=== PATIENT | male | born 1945 | race Caucasian/White ===

== ENCOUNTER 2017-12-16 15:00 | Inpatient (IN) ==
[2017-12-16 19:10] LABS: Basophils # (Auto) 0 K/mcL (0.0-0.3); Basophils % (Auto) 0.3 % (0.0-2.0); Eosinophils # (Auto) 0.2 K/mcL (0.0-0.7); Granulocytes % (Auto) 65.6 % (38.0-78.0); Lymphocytes # (Auto) 1.4 K/mcL (1.5-4.8); Lymphocytes % (Auto) 21.1 % (15.5-49.0); Mean Cell Volume 95.9 fL (80.0-100.0); Mean Corpuscular HGB Conc 33.5 g/dL (31.0-36.0); Mean Corpuscular Hemoglobin 32.1 pg (26.0-34.0); Monocytes # (Auto) 0.7 K/mcL (0.1-0.9); Platelet Count 193 K/mcL (140-440); RBC 4.88 M/mcL (4.50-5.90); Red Cell Distribution Width 14.4 % (11.5-14.5)
[2017-12-16 19:28] LABS: Appearance,Urine HAZY; Bacteria,Urine 0 /hpf (0); Bilirubin,Urine NEG (NEG); Color,Urine AMBER; Glucose,Urine (UA) NEGATIVE (NEG); Leukocyte Esterase,Urine NEG /uL (NEG); Mucus,Urine FEW /hpf (0); Protein,Urine 30 mg/dL (NEG); Specific Gravity,Urine 1.024 (1.000-1.035); Urine Blood NEG mg/dL (<0.03); Urine Hyaline Cast 1 /lpf (0-2); Urine RBC < 1 /hpf (0-1); Urine Squamous Epithelial Cell < 1 /hpf (0-4); Urine WBC 0 /hpf (0-4); Urobilinogen,Urine NEG (NEG)
[2017-12-16 20:27] LABS: Blood Urea Nitrogen 17 mg/dl (8-23)
[2017-12-22] MEDS ORDERED: oxyCODONE 10 MG TAB.ER.12H PO SCH (06:00)
[2017-12-22] MEDS ORDERED: 0.9 % SODIUM CHLORIDE 9 ML, KETOROLAC 30 MG, ROPIVACAINE HCL/PF 49.5 ML, EPINEPHrine 0.... IJ SCH (06:00)
[2017-12-22] MEDS ORDERED: PREGABALIN 75 MG CAPSULE PO SCH (06:00)
[2017-12-22] MEDS ORDERED: CELECOXIB 200 MG CAPSULE PO SCH (06:00)
[2017-12-22] MEDS ORDERED: ceFAZolin 1 GM VIAL IV SCH (06:00)
[2017-12-22] MEDS ORDERED: GLYCOPYRROLATE 0.2 MG/ML VIAL IV ONE (15:20)
[2017-12-22] MEDS ORDERED: PROPOFOL 200 MG/20 ML VIAL IV ONE (15:20)
[2017-12-22] MEDS ORDERED: ETOMIDATE 20 MG/10 ML VIAL IV ONE (15:20)
[2017-12-22] MEDS ORDERED: TRANEXAMIC ACID 1,000 MG/10 ML VIAL IV ONE ×2 (15:20→16:59)
[2017-12-22] MEDS ORDERED: ROPIVACAINE HCL/PF 30 ML VIAL IJ ONE (15:20)
[2017-12-22] MEDS ORDERED: KETAMINE 100 MG/ML ML IV ONE (15:20)
[2017-12-22] MEDS ORDERED: ONDANSETRON 4 MG/2 ML VIAL IV ONE (15:20)
[2017-12-22] MEDS ORDERED: MIDAZOLAM 5 MG/5 ML VIAL IV ONE (15:20)
[2017-12-22] MEDS ORDERED: LIDOCAINE HCL/PF 100 MG/5 ML SYRINGE IV ONE (15:20)
[2017-12-22] MEDS ORDERED: GENTAMICIN SULFATE 800 MG/20 ML VIAL IR ONE (16:04)
[2017-12-22] MEDS ORDERED: MEPERIDINE 25 MG/ML SYRINGE IV PRN (16:41)
[2017-12-22] MEDS ORDERED: LORazepam 2 MG/ML VIAL IV PRN (16:41)
[2017-12-22] MEDS ORDERED: ONDANSETRON 4 MG/2 ML VIAL IV PRN ×2 (16:41→16:59)
[2017-12-22] MEDS ORDERED: ACETAMINOPHEN 1,000 MG/100 ML BOTTLE IV ONE (16:41)
[2017-12-22] MEDS ORDERED: METHOCARBAMOL 1,000 MG/10 ML VIAL IV PRN (16:41)
[2017-12-22] MEDS ORDERED: IPRATROPIUM/ALBUTEROL 3 ML AMPUL.NEB NEB PRN (16:41)
[2017-12-22] MEDS ORDERED: fentaNYL 100 MCG/2 ML VIAL IV PRN (16:41)
[2017-12-22] MEDS ORDERED: LACTATED RINGERS 1,000 ML IV SCH (16:45)
[2017-12-22] MEDS ORDERED: ALPRAZolam 0.5 MG TABLET PO SCH (16:45)
--- NOTE | 2017-12-22 16:58 | Brief Operative Note ---
Date of procedure: 12/22/17 Pre-op diagnosis: right knee oa Post-op diagnosis: same Procedure: right total knee arthroplasty Grafts/Implants: Yes Anesthesia: spinal Complications: none Surgeon: Zhen Kaufmna [place] Scientist: Rylee Thomas Estimated blood loss (cc): 150 Tourniquet Time (Minutes): 68 Specimens Removed/Pathology: none sent Condition: stable Disposition: PACU
[2017-12-22] MEDS ORDERED: oxyCODONE/APAP 5/325MG TABLET PO PRN (16:59)
[2017-12-22] MEDS ORDERED: BISACODYL 10 MG SUPP.RECT PR PRN (16:59)
[2017-12-22] MEDS ORDERED: FLEETS ADULT ENEMA PR PRN (16:59)
[2017-12-22] MEDS ORDERED: MAGNESIUM HYDROXIDE 30 ML ORAL.SUSP PO PRN (16:59)
[2017-12-22] MEDS ORDERED: METHOCARBAMOL 750 MG TABLET PO PRN (16:59)
[2017-12-22] MEDS ORDERED: BENZOCAINE/MENTHOL 1 LOZENGE PO PRN (16:59)
[2017-12-22] MEDS ORDERED: ONDANSETRON ODT 4 MG TABLET SL PRN (16:59)
[2017-12-22] MEDS ORDERED: LORazepam 1 MG TABLET PO SCH (17:00)
--- NOTE | 2017-12-22 18:07 | XRay Report ---
CLINICAL INFORMATION: Postsurgical follow-up TECHNIQUE: AP and crosstable lateral right knee COMPARISON: None. FINDINGS: Status post right total knee arthroplasty. Femoral and proximal tibial components are in anatomic positions. There is postsurgical soft tissue and intra-articular gas IMPRESSION: Right total knee arthroplasty. Interpreted and Authenticated by: Zhen Maki 12/22/17
[2017-12-22] MEDS ORDERED: ACETAMINOPHEN 1,000 MG/100 ML BOTTLE IV PRN (18:57)
[2017-12-22] MEDS: KETOROLAC 15 MG/ML VIAL IV SCH (22:25)
[2017-12-22] MEDS: 0.9 % SODIUM CHLORIDE 1,000 ML IV SCH (22:25)
[2017-12-22] MEDS: 0.9 % SODIUM CHLORIDE 10 ML SYRINGE IV SCH (22:27)
[2017-12-22] MEDS: ceFAZolin 1 GM VIAL IV SCH (22:27)
[2017-12-22] MEDS: SENNOSIDES 1 TABLET PO SCH (23:17)
[2017-12-22] MEDS: RIVAROXABAN 20 MG TABLET PO SCH (23:17)
[2017-12-22] MEDS: DOCUSATE SODIUM 100 MG CAPSULE PO SCH (23:17)
[2017-12-22] MEDS: METOPROLOL TARTRATE 50 MG TABLET PO SCH (23:17)
[2017-12-23] MEDS: KETOROLAC 15 MG/ML VIAL IV SCH ×4 (01:45→17:04)
[2017-12-23] MEDS: 0.9 % SODIUM CHLORIDE 1,000 ML IV SCH ×3 (01:46→17:04)
[2017-12-23] MEDS: traMADol 50 MG TABLET PO PRN ×3 (06:17→17:03)
[2017-12-23] MEDS: 0.9 % SODIUM CHLORIDE 10 ML SYRINGE IV SCH ×3 (06:17→22:00)
--- NOTE | 2017-12-23 07:34 | Orthopedic Progress Note ---
Subjective Patient information: Note initiated : 12/23/17 at 7:31 am Service Date, if different from initiated Date: [] Patient: Aaron Omalley 72 y/o M admitted on 12/22/17 for Right Total Knee Arthroplasty. Chief Complaint: [POD #1 s/p right TKA Doing very well. Nurses state foot was "blue" last night and they loosened the LANCE wrap. He denies CP, SOB, numbness, tingling, calf pain or foot pain. Ambulating well.] Objective Vital signs: Vital Signs Temp Pulse Resp BP BP Pulse Ox 12/23/17 03:22 98.4 F 70 14 140/99 96 12/23/17 00:00 144/101 12/22/17 23:41 97.4 F 72 14 172/99 95 12/22/17 21:40 97.6 F 72 14 137/96 97 12/22/17 20:40 126/92 12/22/17 20:10 79 132/91 94 12/22/17 19:40 77 132/92 93 12/22/17 19:25 76 132/97 93 12/22/17 19:10 82 140/95 93 12/22/17 18:55 79 148/95 93 12/22/17 18:41 97.0 F 91 H 18 172/101 95 12/22/17 18:35 98 F 101 H 14 146/92 96 12/22/17 18:28 97.5 F 104 H 15 148/96 97 12/22/17 18:19 97.5 F 96 H 16 178/96 95 12/22/17 18:04 98.1 F 99 H 14 158/89 95 12/22/17 17:54 98 F 89 16 168/89 95 12/22/17 17:44 97.6 F 102 H 16 137/89 98 12/22/17 17:34 97.5 F 89 17 143/98 98 12/22/17 17:29 97 F 107 H 17 156/98 100 12/22/17 17:24 96.8 F L 95 H 15 167/97 99 12/22/17 17:19 96.8 F L 110 H 18 147/94 96 12/22/17 12:43 98.4 F 88 16 176/94 98 Intake and Output 12/22/17 12/23/17 12/23/17 21:59 05:59 13:59 Intake Total 3000 / 3000 1100 / 1100 1000 / 1000 Output Total 765 / 765 250 / 250 Balance 2235 / 2235 850 / 850 1000 / 1000 Intake: IV 100 / 100 1000 / 1000 Sodium Chloride 0.9% 1,000 ml @ 1000 / 1000 125 mls/hr IV .Q8H [facility] Rx#: [id number] Oral 1100 / 1100 IV - Manual Only 2900 / 2900 Output: Urine Catheter Amount 700 / 700 Void Amount 250 / 250 Estimated Blood Loss 65 / 65 Other: Meal Nourishment/Supplement Percent of Meal Consumed 100% Feeding Ability Independent Urine Appearance Clear Urine Color Pale Urine Odor Normal Weight 187 lb Intake & Output: Intake & Output 12/22/17 12/23/17 12/23/17 21:59 05:59 13:59 Intake Total 3000 / 3000 1100 / 1100 1000 / 1000 Output Total 765 / 765 250 / 250 Balance 2235 / 2235 850 / 850 1000 / 1000 Weight 187 lb Intake: IV 100 / 100 1000 / 1000 Sodium Chloride 0.9% 1,000 ml @ 1000 / 1000 125 mls/hr IV .Q8H [facility] Rx#: [id number] Oral 1100 / 1100 IV - Manual Only 2900 / 2900 Output: Urine Catheter Amount 700 / 700 Void Amount 250 / 250 Estimated Blood Loss 65 / 65 Other: Meal Nourishment/Supplement Percent of Meal Consumed 100% Feeding Ability Independent Urine Appearance Clear Urine Color Pale Urine Odor Normal Incision: Yes healing, No draining, No red, No swollen, No inflamed, Yes clean and dry Incision clean and dry: Yes Dressing: Yes clean, Yes dry, Yes intact Weight bearing status: as tolerated Range of motion: full foot and ankle Neurological exam IM: Yes alert, Yes oriented X3, Yes motor sensory intact, Yes neurovascular intact Extremities exam IM: No calf tenderness, Yes normal capillary refill, Yes normal inspection, Yes neurovascular intact Additional Comments: right foot slightly bluer in hue compared to left. Good pulses. Cap refill < 3 seconds - Periperhal Pulses Peripheral pulses: 2+: dorsalis pedis (L), dorsalis pedis (R), posterior tibialis (L), posterior tibialis (R) - Labs CBC & BMP: 12/23/17 06:00 12/16/17 16:09 Labs: Orthopedic Labs 12/16/17 16:09 PT 13.3 INR 1.0 12/23/17 12/16/17 06:00 16:10 Hgb 12.1 L 15.7 Hct 36.6 L 46.8 Assessment and Plan (1) Osteoarthritis, knee POD #1 s/p right TKA: -rehab Thursday -pain control -home meds resume including Ativan -ASA for dvt prophylaxis -WBAT -monitor right foot. Encourage ambulation and CPM. No current concern for blood clot. LANCE not overly tight Status: Acute
--- NOTE | 2017-12-23 07:51 | Operative Note ---
DATE OF OPERATION: 12/22/2017 PREOPERATIVE DIAGNOSIS: Degenerative joint disease, right knee. POSTOPERATIVE DIAGNOSIS: Degenerative joint disease, right knee. PROCEDURE: Right total knee arthroplasty. SURGEON: Dougie Kaufman M.D. POLE CLASSIFIER SURGEON: Rylee Thomas PA-C. ANESTHESIA: Spinal with LMA assist. ESTIMATED BLOOD LOSS: 150 mL. COMPLICATIONS: None noted. SPECIMENS REMOVED: None. DRAINS: None. TOURNIQUET TIME: 68 minutes at 300 mmHg. IMPLANTS: DePuy CMW2 bone cement 20 grams x5; DePuy Attune femoral posterior stabilized size 10 right, cemented; DePuy Attune tibial insert fixed bearing posterior stabilized size 10, 5 mm AOX; DePuy Attune tibial base fixed bearing size 9, cemented; DePuy Attune patella medialized dome 41 mm, cemented AOX. INDICATIONS: The patient has had a long-standing history of worsening pain in the knee that has failed conservative treatment. Radiographs have confirmed advanced degenerative joint disease. After a long discussion about treatment options, the patient elected to proceed with a knee arthroplasty. The risks and benefits were discussed with the patient in detail including, but not limited to, the risks of anesthesia, problems with the heart or lungs related to anesthesia, infection, compromise or injury to the nerves and blood vessels, deep venous thrombosis, pulmonary embolism, pneumonia, continued pain after surgery, worsening pain or symptoms after surgery, swelling, loss of motion, instability, leg length discrepancy, and need for repeat surgery. DESCRIPTION OF PROCEDURE: The patient was seen in the pre-anesthesia waiting room where all questions were answered and the correct side and site were identified and marked. The patient was transferred to the operating room and administered the anesthetic and given pre-operative antibiotics. A time-out was then called. The extremity was prepped and draped, exsanguinated, and the tourniquet was inflated to 300 mmHg. A midline skin incision was then made with a standard medial parapatellar arthrotomy. Debridement of the menisci, ACL, and PCL was performed followed by balancing releases in the medial lateral plane. We then established intramedullary access to both the femur and tibia in a standard fashion. The femoral guide danita was initially placed with the distal femoral guide, pinned into place, and the distal femoral cut was performed and checked with a flat plate. We then turned our attention to the tibia. The intramedullary guide was placed with the proximal tibial cutting block. The block was appropriately positioned off the affected side, varus and valgus was checked with the extra-medullary guide, and the block was pinned into place. The proximal tibial cut was performed and the tibia was prepared for the tibial implant with appropriate rotation. The tibia, femur, and posterior compartment were debrided of osteophytes, loose bodies, and meniscal fragments We then used the gap balancing technique to balance extension with the first two cuts and good balancing was obtained with a 10 millimeter gap block. We turned our attention back to the femur and used the referencing block and implant to size appropriately. Using the gap balancing technique for the flexion space we set our rotation of the femur off the tibial cut. Anesthesia gave the patient 1 gram of Tranexamic Acid via an intravenous route. We placed the 4 in 1 cutting block and made anterior, posterior, and chamfer cuts. Box plasty cuts were then made in a standard fashion for the posterior stabilized prosthesis. We then completed osteophyte release and posterior capsule release from the posterior compartment. Trials were placed and we chose the polyethylene insert thickness that provided the best stability in all planes. With the trials in place, we did a measured resection for a resurfacing patella. We sized the patella and placed the patella trial and performed a lateral facetectomy with the saw and rongeur. Good tracking was obtained. We removed all trials, irrigated and dried all cut surfaces. We cemented the components into place including tibia, femur and patella. We placed a trial liner and held the knee in full extension with the patella compressed while the cement cured. We then removed all excess cement and placed the final polyethylene tibiofemoral component. Irrigation with 3 liters of antibiotic saline was then performed using jet-lavage. We let the tourniquet down and coagulated bleeding vessels. We injected a 100 cubic centimeter volume including Ropivacaine 49.25 cubic centimeters at 5 milligrams per cubic centimeter, Ketorolac 30 milligrams, and Epinephrine 0.5 milligrams into 100 cubic centimeters volume of normal saline. We closed the retinaculum with #2 Stratafix and 0 Vicryl. We closed the subcutaneous tissue and skin in layers out to Dermabond on the skin. A sterile pressure dressing was applied. All needle and sponge counts were correct. The patient was transferred to the recovery room in stable condition. Saba Job ID: [id number] Doc ID: [id number] Dougie Kaufman MD
[2017-12-23] MEDS: ceFAZolin 1 GM VIAL IV SCH (07:55)
[2017-12-23] MEDS: METOPROLOL TARTRATE 50 MG TABLET PO SCH ×2 (07:56→22:06)
[2017-12-23] MEDS: DOCUSATE SODIUM 100 MG CAPSULE PO SCH ×2 (07:56→22:06)
[2017-12-23] MEDS: RIVAROXABAN 20 MG TABLET PO SCH (17:03)
[2017-12-23] MEDS: SENNOSIDES 1 TABLET PO SCH (22:06)
[2017-12-24] MEDS: 0.9 % SODIUM CHLORIDE 1,000 ML IV SCH ×3 (01:00→17:16)
[2017-12-24] MEDS: KETOROLAC 15 MG/ML VIAL IV SCH ×3 (05:03→12:06)
[2017-12-24] MEDS: 0.9 % SODIUM CHLORIDE 10 ML SYRINGE IV SCH ×3 (05:04→20:50)
--- NOTE | 2017-12-24 07:13 | Orthopedic Progress Note ---
Subjective Patient information: Note initiated : 12/24/17 at 7:12 am Service Date, if different from initiated Date: [] Patient: Aaron Omalley 72 y/o M admitted on 12/22/17 for Right Total Knee Arthroplasty. Chief Complaint: [] Interval history: doing well. ambulating Objective Vital signs: Vital Signs Temp Pulse Resp BP Pulse Ox 12/24/17 04:50 97.4 F 100 H 14 161/97 97 12/23/17 19:14 98.4 F 89 13 130/77 96 12/23/17 16:55 98.6 F 20 136/90 95 12/23/17 11:53 98 F 20 139/90 98 12/23/17 07:48 98.1 F 20 133/92 97 Intake and Output 12/23/17 12/24/17 12/24/17 21:59 05:59 13:59 Intake Total 400 / 400 600 / 600 Output Total 200 / 200 Balance 400 / 400 400 / 400 Intake: Oral 400 / 400 600 / 600 Output: Void Amount 200 / 200 Other: Urine Color Dark Yellow Urine Odor Normal # Voids 1 Weight 188 lb Intake & Output: Intake & Output 12/23/17 12/24/17 12/24/17 21:59 05:59 13:59 Intake Total 400 / 400 600 / 600 Output Total 200 / 200 Balance 400 / 400 400 / 400 Weight 188 lb Intake: Oral 400 / 400 600 / 600 Output: Void Amount 200 / 200 Other: Urine Color Dark Yellow Urine Odor Normal # Voids 1 Incision: Yes healing Incision clean and dry: Yes Dressing: Yes clean, Yes dry, Yes intact Weight bearing status: full Neurological exam IM: Yes alert, Yes normal gait, Yes oriented X3, Yes neurovascular intact Extremities exam IM: No calf tenderness, Yes Foot pink and warm, Yes neurovascular intact - Labs CBC & BMP: 12/23/17 06:00 12/16/17 16:09 Labs: Orthopedic Labs 12/16/17 16:09 PT 13.3 INR 1.0 12/24/17 12/23/17 12/16/17 05:11 06:00 16:10 Hgb Pending 12.1 L 15.7 Hct Pending 36.6 L 46.8 Assessment and Plan (1) Osteoarthritis, knee pod 2 s/p tka wbat pain control dvt prophylaxis dc planning Status: Acute
--- NOTE | 2017-12-24 07:14 | Discharge Summary ---
Ortho Discharge - TKA - Patient Instructions Diet: Regular Diet Activity: activity as tolerated, ambulate with assistive device, weight bearing as tolerated Total Knee Protocol: For Total Knee: Start ROM CLEMENCIA with stationary bike or rocking chair. Work on gaining full extension of knee. Posterior dislocation precautions provided. Hip abductor strengthening and gait training instructions provided. Apply Cryocuff as instructed. Dressing Care: May shower in 2 days Patient Education: Total Knee Replacement (DC) Additional Instructions: Discharge Instructions: Do the exercises at home that physical therapy gave you throughout the day. Weight bearing as tolerated. Wear comfortable clothing for physical therapy. You have Dermabond (a dressing with a mesh-like appearance), DO NOT remove mesh. Cover site daily with gauze dressing. You may start showering on post op day #2. The Dermabond dressing can get wet, do not scrub dressing. Pat dry, then place new dressing (above). To avoid constipation while taking any narcotic pain medication, take an over the counter stool softener/laxative. Use your Cryocuff or ice packs as directed, on for 20 minutes at a time throughout the day. This and elevation will help with pain and swelling. Call your physician for fevers above 100.5 or pain not controlled by medication. Your prescriptions are with your discharge information. Some medications were electronically transmitted to your pharmacy of choice. Take Aspirin twice daily, for 30 days, as prescribed to prevent blood clots ( see medication list). - Problem Maintenance (1) Osteoarthritis, knee Status: Acute - Follow Up Plan Follow Up Appointments: Zhen Kaufman MD [Physician] - 01/04/18 10:20 am Disposition: Xfer SNF Prognosis: Good Rehab Potential: Good I certify that the patient requires SNF services: Yes Overall status at discharge: patient is progressing back to baseline
[2017-12-24] MEDS: DOCUSATE SODIUM 100 MG CAPSULE PO SCH ×2 (07:58→20:49)
[2017-12-24] MEDS: traMADol 50 MG TABLET PO PRN (07:58)
[2017-12-24] MEDS: POLYETHYLENE GLYCOL 3350 17 GM PACKET PO PRN (07:59)
[2017-12-24] MEDS: METOPROLOL TARTRATE 50 MG TABLET PO SCH ×2 (07:59→20:49)
[2017-12-24] MEDS: LORazepam 1 MG TABLET PO PRN (08:09)
[2017-12-24] MEDS: RIVAROXABAN 20 MG TABLET PO SCH (17:14)
[2017-12-24] MEDS ORDERED: ACETAMINOPHEN 325 MG TABLET PO PRN (20:01)
[2017-12-24] MEDS: SENNOSIDES 1 TABLET PO SCH (20:49)
[2017-12-25] MEDS: POLYETHYLENE GLYCOL 3350 17 GM PACKET PO PRN (05:09)
--- NOTE | 2017-12-25 07:38 | Orthopedic Progress Note ---
Subjective Patient information: Note initiated : 12/25/17 at 7:35 am Service Date, if different from initiated Date: [] Patient: Aaron Omalley 72 y/o M admitted on 12/22/17 for Right Total Knee Arthroplasty. Chief Complaint: [POD #3 s/p right TKA Developed severe blisters surrounding dermabond and right lower extremity. Slight increase in temperature yesterday. No nausea, vomiting, numbness, tingling, CP, SOB. Denies significant pain. No other concerns.] Objective Vital signs: Vital Signs Temp Pulse Pulse Resp BP Pulse Ox 12/25/17 04:00 99.3 F H 90 20 140/85 96 12/25/17 00:00 100.1 F H 98 H 16 135/86 97 12/24/17 20:00 100.1 F H 98 H 18 148/88 98 12/24/17 16:05 100.8 F H 90 18 152/89 12/24/17 11:31 98.1 F 82 14 144/92 98 12/24/17 07:57 98.1 F 87 14 154/94 98 Intake and Output 12/24/17 12/25/17 12/25/17 21:59 05:59 13:59 Intake Total 1200 / 1200 Balance 1200 / 1200 Intake: Oral 1200 / 1200 Other: # Voids 1 2 # Bowel Movements 0 Weight 209 lb 6.4 oz Intake & Output: Intake & Output 12/24/17 12/25/17 12/25/17 21:59 05:59 13:59 Intake Total 1200 / 1200 Balance 1200 / 1200 Weight 209 lb 6.4 oz Intake: Oral 1200 / 1200 Other: # Voids 1 2 # Bowel Movements 0 Incision: Yes draining, Yes swollen, Yes inflamed Incision clean and dry: No Dressing: No clean Weight bearing status: as tolerated Range of motion: full foot and ankle Neurological exam IM: Yes alert, Yes oriented X3, Yes motor sensory intact, Yes neurovascular intact Additional Comments: Multiple bullae surrounding right knee incision and abrasions. Bullous distally posterior right ankle. Incision approximated without dehiscence or drainage. 2+ edema of right foot, slightly blue in hue. DP/PT pulses 2+, capillary refill < 3 seconds Extremities exam IM: No calf tenderness, Yes normal capillary refill, Yes neurovascular intact - Labs CBC & BMP: 11/09/18 05:51 12/16/17 16:09 Labs: Orthopedic Labs 12/16/17 16:09 PT 13.3 INR 1.0 12/25/17 12/24/17 12/23/17 05:51 05:11 06:00 Hgb 9.9 L 10.4 L 12.1 L Hct 29.2 L 31.1 L 36.6 L 12/16/17 16:10 Hgb 15.7 Hct 46.8 Assessment and Plan (1) Osteoarthritis, knee POD #3 s/p right TKA: -continue hospital stay to follow wound complication -pain control -home meds resume including Ativan -WBAT -no PT until knee reinforced. Spoke to anesthesia, will take patient to PACU for conscious sedation this afternoon to staple wound. -wound care consult -IV abx over the weekend -keep dressing on at all times Status: Acute
[2017-12-25] MEDS: LORazepam 1 MG TABLET PO PRN (07:47)
[2017-12-25] MEDS: METOPROLOL TARTRATE 50 MG TABLET PO SCH ×2 (08:38→20:58)
[2017-12-25] MEDS: DOCUSATE SODIUM 100 MG CAPSULE PO SCH ×2 (08:38→20:58)
[2017-12-25] MEDS: CLINDAMYCIN 600 MG in DEXTROSE 5% IN WATER 50 ML IV SCH ×3 (09:59→21:15)
--- NOTE | 2017-12-25 10:10 | Ultrasound Report ---
CLINICAL INFORMATION: Right leg pain and swelling TECHNIQUE: Jovel scale and color flow Doppler spectral imaging COMPARISON: None. FINDINGS: Negative examination for deep venous thrombosis. Normal right common femoral vein, superficial femoral vein, popliteal vein. Negative calf veins. Greater and lesser saphenous veins are negative. IMPRESSION: 1. Negative right lower extremity deep venous ultrasound 2. Negative examination for deep venous thrombosis Interpreted and Authenticated by: Zhen Maki 12/25/17
[2017-12-25] MEDS: traMADol 50 MG TABLET PO PRN ×3 (11:32→21:15)
[2017-12-25] MEDS ORDERED: LIDOCAINE HCL/PF 100 MG/5 ML SYRINGE IV ONE (14:20)
[2017-12-25] MEDS ORDERED: PROPOFOL 200 MG/20 ML VIAL IV ONE (14:20)
[2017-12-25] MEDS ORDERED: fentaNYL 100 MCG/2 ML VIAL IV PRN (14:43)
[2017-12-25] MEDS ORDERED: IPRATROPIUM/ALBUTEROL 3 ML AMPUL.NEB NEB PRN (14:43)
[2017-12-25] MEDS ORDERED: ONDANSETRON 4 MG/2 ML VIAL IV PRN (14:43)
[2017-12-25] MEDS ORDERED: LACTATED RINGERS 1,000 ML IV SCH (14:45)
--- NOTE | 2017-12-25 17:42 | Consultation ---
DATE OF CONSULTATION: 12/25/2017 CHIEF COMPLAINT: Mr. Omalley is seen in consultation at the request of NATALI Peter in orthopedic surgery. HISTORY OF PRESENT ILLNESS: Mr. Omalley is a 72-year-old man who is seen in evaluation for right knee blister formation with subsequent disruption at a site of recent surgery. The patient underwent a right total knee arthroplasty by Dr. Kaufman on 12/22/2017. Postoperatively, he has been managed on the med/surg floor. On 12/27/2017 in the morning, his dressing was taken down and the patient was noted to have developed severe blistering around the site of his incision on the right knee where Dermabond had been placed during wound closure. Dermabond was removed from the area with subsequent disruption of the blister surrounding that area. Plan is that the patient will be taken back to the perioperative area for additional reinforcement of the wound closure with skin sonny. Wound care consult was requested for evaluation and additional recommendations for management of the areas that now have open wound near site of surgery. The patient reports that he does have pain in the right leg at the site of surgery. He also reports anxiety, which is a general baseline issue for him for which he has recently been medicated with Ativan. He denies chest pain or pressure. Denies shortness of breath. PAST MEDICAL HISTORY: 1. Atrial fibrillation for which he is on chronic anticoagulation therapy. The patient had stopped his Xarelto for 7 days prior to his operation and has since been restarted on this medication. 2. History of biatrial enlargement with 55% ejection fraction. 3. Anxiety. 4. Osteoarthritis. SOCIAL HISTORY: The patient denies tobacco use. Denies alcohol use. Reports occasional marijuana use. PHYSICAL EXAMINATION: VITAL SIGNS: Temperature 97.4, pulse 90s to 100, respiratory rate 16 breaths per minute, blood pressure 151/90, O2 saturations 100% on room air. GENERAL APPEARANCE: Mr. Omalley is a well-developed, well-nourished man who appears his stated age. He appears in no acute distress, but he does seem a little anxious in general. HEENT: Sclerae are white. Mucous membranes moist. CHEST: Breath sounds are clear bilaterally. No rales or wheezes are heard. Chest excursion equal bilaterally. CARDIOVASCULAR: Irregular rhythm. ABDOMEN: Nontender. EXTREMITIES: No abnormal changes noted of the upper extremities. Examination of lower extremities reveals DP pulses easily palpable bilaterally. The left leg is without any obvious abnormality. The right leg has surgical incision vertically oriented on the anterior aspect of the knee with swelling surrounding the knee and ecchymosis noted within the area and extending to the posterior part of the knee and down the leg. There is also ecchymosis noted in the medial thigh, presumably from a dependent position in the way in which the patient is situated in the bed. There is swelling surrounding the knee and extending down the right leg. There is a slight bluish discoloration of the toes and at the nailbeds of the first and second digit on the right foot. The patient states that this happens at times, though it does seem a little more pronounced to him today. There is capillary refill at about 2 seconds. Mild tenderness on palpation of the calf. No pain reported with active or passive flexion and extension at the ankle. There is a blister formation noted on the medial lower right leg. Additionally, blister formation is noted on the lateral aspect of the knee. Overlying the knee anteriorly surrounding the surgical incision, there is an area of denuded skin consistent with previous blister formation and loss of the epidermis with disruption of the blister. The skin in this area does not have sign of acute infection. There is no active drainage coming from the wound, but all tissue in this area, as already described is edematous, presumably from recent surgery. There is no exceptional warmth to the leg, though, it should be noted the patient has had ice packs to the leg prior to my exam for management of pain. LABS: H and H done today shows a hemoglobin of 9.9, hematocrit 29.2. No chemistries drawn today, but chemistries drawn on 12/16 are reviewed and are normal. ASSESSMENT AND PLAN: Right knee blister formation with disruption perioperatively. This is presumably related to the use of Dermabond. It is possible that this could be an allergic reaction given that it is reported to have only occurred in the area where the Dermabond was placed. There is, however, significant swelling of the leg, which no doubt is contributed to blister formation in areas where skin has already been tacked from surgery. There is additionally however, significant swelling in the lower leg with blister formation distally on the medial aspect. Although the swelling is expected after a total knee replacement, the amount of swelling seems to be more than I would expect. Given that the patient does have a history of Xarelto use and was off it for 7 days prior to surgery, I would recommend evaluating for DVT to rule out this possibility as an additional cause of swelling. Regarding current wound on the knee, agree with removal of Dermabond that has been done. Agree with plan for further closure of the skin due to loss of the covering of the Dermabond. Would agree with covering for antibiotics given, the underlying hardware and I think it is reasonable to have discussion with infectious disease regarding the need and length of continued antibiotics perioperatively. Wound care to the area can be with local wound dressings. Would treat this area as one would for second degree burn with keeping the area clean and local dressing changes. Would recommend MIST therapy with lavage solution to be done daily for at least 5 days with plans for reevaluate the further need after 5 days. This would be a gentle way of cleansing this area daily mechanically without increasing trauma to the area. Thereafter, dressings can be done daily with silvadene or Aquacel AG extra directly to the wounds. RC:german Job ID: [id number] Doc ID: [id number] Marian NEWBERRY
[2017-12-25] MEDS: RIVAROXABAN 20 MG TABLET PO SCH (17:46)
[2017-12-25] MEDS: SENNOSIDES 1 TABLET PO SCH (20:58)
[2017-12-26] MEDS: CLINDAMYCIN 600 MG in DEXTROSE 5% IN WATER 50 ML IV SCH ×3 (06:10→22:27)
[2017-12-26] MEDS: traMADol 50 MG TABLET PO PRN ×3 (06:28→17:27)
[2017-12-26] MEDS: DOCUSATE SODIUM 100 MG CAPSULE PO SCH ×2 (08:56→20:13)
[2017-12-26] MEDS: METOPROLOL TARTRATE 50 MG TABLET PO SCH ×2 (08:56→20:13)
--- NOTE | 2017-12-26 10:40 | Orthopedic Progress Note ---
Subjective Patient information: Note initiated : 12/26/17 at 10:37 am Service Date, if different from initiated Date: [] Patient: Aaron Omalley 72 y/o M admitted on 12/22/17 for Wound Closure. Chief Complaint: [] Interval history: feeling better since yesterday. no complaints today Objective Vital signs: Vital Signs Temp Pulse Resp BP Pulse Ox 12/26/17 08:00 98.8 F 85 18 128/80 95 12/26/17 07:48 88 18 95 12/26/17 04:00 99 F 88 18 137/90 95 12/26/17 01:00 99.5 F H 12/25/17 21:30 99.1 F H 12/25/17 20:00 99.2 F H 105 H 18 134/84 97 12/25/17 16:00 100 H 12/25/17 15:46 149/95 97 12/25/17 15:31 143/93 97 12/25/17 15:16 142/90 98 12/25/17 15:01 124/87 97 12/25/17 14:50 99.1 F H 100 H 22 124/73 96 12/25/17 14:45 89 22 128/86 100 12/25/17 14:40 94 H 20 128/90 100 12/25/17 14:35 99.8 F H 102 H 24 H 121/78 98 12/25/17 12:43 98.9 F 16 141/99 100 Intake and Output 12/25/17 12/26/17 12/26/17 21:59 05:59 13:59 Intake Total 608 / 608 500 / 500 400 / 400 Balance 608 / 608 500 / 500 400 / 400 Intake: IV 108 / 108 Cleocin 600 mg In Dextrose 5% 108 / 108 in Water 50 ml @ 100 mls/hr IV Q8H [facility] Rx#:[id number] Oral 500 / 500 500 / 500 400 / 400 Other: Meal Breakfast Percent of Meal Consumed 100% Feeding Ability Independent Urine Appearance Clear Urine Color Bright Yellow Urine Odor Normal # Voids 1 Weight 208 lb Intake & Output: Intake & Output 12/25/17 12/26/17 12/26/17 21:59 05:59 13:59 Intake Total 608 / 608 500 / 500 400 / 400 Balance 608 / 608 500 / 500 400 / 400 Weight 208 lb Intake: IV 108 / 108 Cleocin 600 mg In Dextrose 5% 108 / 108 in Water 50 ml @ 100 mls/hr IV Q8H [facility] Rx#:[id number] Oral 500 / 500 500 / 500 400 / 400 Other: Meal Breakfast Percent of Meal Consumed 100% Feeding Ability Independent Urine Appearance Clear Urine Color Bright Yellow Urine Odor Normal # Voids 1 Incision: Yes healing (improving. blistering resolving. stage 1 epidermolysis, no active infection noted), Yes red, Yes inflamed Incision clean and dry: Yes Dressing: Yes clean, Yes dry, Yes intact Weight bearing status: full Neurological exam IM: Yes alert, Yes normal gait, Yes oriented X3, Yes motor sensory intact, Yes neurovascular intact Extremities exam IM: No calf tenderness, Yes Foot pink and warm, Yes neurovascular intact - Labs CBC & BMP: 12/25/17 05:51 12/16/17 16:09 Labs: Orthopedic Labs 12/16/17 16:09 PT 13.3 INR 1.0 12/25/17 12/24/17 12/23/17 05:51 05:11 06:00 Hgb 9.9 L 10.4 L 12.1 L Hct 29.2 L 31.1 L 36.6 L 12/16/17 16:10 Hgb 15.7 Hct 46.8 Assessment and Plan (1) Osteoarthritis, knee pod 4 s/p tka, bullous impetigo s/p reaction to dermabond improving with removal and sonny placement with iv abx wbat pain control dvt prophylaxis dc planning - rehab when stabilizes on oral antibiotics x 7 days Status: Acute
[2017-12-26] MEDS: LORazepam 1 MG TABLET PO PRN (15:24)
[2017-12-26] MEDS: SILVER SULFADIAZINE CREAM.TOP 400GM TOPICAL SCH (16:05)
[2017-12-26] MEDS: RIVAROXABAN 20 MG TABLET PO SCH (17:27)
[2017-12-26] MEDS: SENNOSIDES 1 TABLET PO SCH (20:13)
[2017-12-27] MEDS: CLINDAMYCIN 600 MG in DEXTROSE 5% IN WATER 50 ML IV SCH ×3 (06:06→21:58)
[2017-12-27] MEDS: traMADol 50 MG TABLET PO PRN ×2 (06:43→18:03)
--- NOTE | 2017-12-27 07:57 | Orthopedic Progress Note ---
Subjective Patient information: Note initiated : 12/27/17 at 7:56 am Service Date, if different from initiated Date: [] Patient: Aaron Omalley 72 y/o M admitted on 12/22/17 for Wound Closure. Chief Complaint: [] Interval history: doing better today Objective Vital signs: Vital Signs Temp Pulse Resp BP Pulse Ox 12/27/17 06:58 99.4 F H 99 H 20 143/76 97 12/26/17 23:41 98.8 F 73 16 133/86 97 12/26/17 20:00 99.0 F 76 18 124/86 95 12/26/17 16:00 99.1 F H 18 147/90 99 12/26/17 12:00 96 H 12/26/17 11:36 98.4 F 96 H 131/85 12/26/17 08:00 98.8 F 85 18 128/80 95 Intake and Output 12/26/17 12/27/17 12/27/17 21:59 05:59 13:59 Intake Total 294 / 294 54 / 54 650 / 650 Balance 294 / 294 54 / 54 650 / 650 Intake: IV 54 / 54 54 / 54 Cleocin 600 mg In Dextrose 5% 54 / 54 54 / 54 in Water 50 ml @ 100 mls/hr IV Q8H [facility] Rx#:[id number] Oral 240 / 240 650 / 650 Other: Stool Size Moderate Stool Color Brown Stool Consistency Soft # Voids 1 1 1 # Bowel Movements 1 Weight 209 lb 3.2 oz Intake & Output: Intake & Output 12/26/17 12/27/17 12/27/17 21:59 05:59 13:59 Intake Total 294 / 294 54 / 54 650 / 650 Balance 294 / 294 54 / 54 650 / 650 Weight 209 lb 3.2 oz Intake: IV 54 / 54 54 / 54 Cleocin 600 mg In Dextrose 5% 54 / 54 54 / 54 in Water 50 ml @ 100 mls/hr IV Q8H [facility] Rx#:[id number] Oral 240 / 240 650 / 650 Other: Stool Size Moderate Stool Color Brown Stool Consistency Soft # Voids 1 1 1 # Bowel Movements 1 Incision: Yes healing, Yes swollen Incision clean and dry: Yes Dressing: Yes clean, Yes dry, Yes intact Weight bearing status: full Neurological exam IM: Yes normal gait Extremities exam IM: No calf tenderness, Yes Foot pink and warm, Yes neurovascular intact - Labs CBC & BMP: 12/25/17 05:51 12/16/17 16:09 Labs: Orthopedic Labs 12/16/17 16:09 PT 13.3 INR 1.0 12/25/17 12/24/17 12/23/17 05:51 05:11 06:00 Hgb 9.9 L 10.4 L 12.1 L Hct 29.2 L 31.1 L 36.6 L 12/16/17 16:10 Hgb 15.7 Hct 46.8 Assessment and Plan (1) Osteoarthritis, knee pod 5 s/p tka, bullous impetigo s/p reaction to dermabond improving with removal and sonny placement with iv abx wbat pain control dvt prophylaxis dc planning - rehab when stabilizes on oral antibiotics x 7 days Status: Acute
[2017-12-27] MEDS: DOCUSATE SODIUM 100 MG CAPSULE PO SCH ×2 (08:50→20:20)
[2017-12-27] MEDS: METOPROLOL TARTRATE 50 MG TABLET PO SCH ×2 (08:50→20:20)
[2017-12-27] MEDS: SILVER SULFADIAZINE CREAM.TOP 400GM TOPICAL SCH (08:52)
[2017-12-27] MEDS: RIVAROXABAN 20 MG TABLET PO SCH (17:55)
[2017-12-27] MEDS: SENNOSIDES 1 TABLET PO SCH (20:20)
[2017-12-28] MEDS: CLINDAMYCIN 600 MG in DEXTROSE 5% IN WATER 50 ML IV SCH (05:56)
[2017-12-28] MEDS: traMADol 50 MG TABLET PO PRN ×3 (05:58→20:00)
--- NOTE | 2017-12-28 07:30 | Orthopedic Progress Note ---
Subjective Patient information: Note initiated : 12/28/17 at 7:27 am Service Date, if different from initiated Date: [] Patient: Aaron Omalley 72 y/o M admitted on 12/22/17 for Wound Closure. Chief Complaint: [POD #6 s/p right TKA with post op wound complication Patient doing better. Reports pain has improved. Ambulating okay. States knee feels like a burn but better. Denies CP, SOB, numbness, tingling or calf pain.] Objective Vital signs: Vital Signs Temp Pulse Resp BP Pulse Ox 12/28/17 06:33 97.5 F 16 137/82 97 12/28/17 03:32 98.3 F 98 H 20 128/77 97 12/27/17 23:38 98.7 F 86 14 131/77 97 12/27/17 20:00 98.9 F 100 H 16 129/85 95 12/27/17 16:00 98 H 12/27/17 15:19 98.6 F 98 H 20 125/83 99 12/27/17 12:04 98.9 F 93 H 18 137/81 99 Intake and Output 12/27/17 12/28/17 12/28/17 21:59 05:59 13:59 Intake Total 154 / 154 354 / 354 Balance 154 / 154 354 / 354 Intake: IV 54 / 54 54 / 54 Cleocin 600 mg In Dextrose 5% / 54 54 / 54 in Water 50 ml @ 100 mls/hr IV Q8H [facility] Rx#:[id number] Oral 100 / 100 300 / 300 Other: Stool Size Small Stool Color Brown Stool Consistency Soft # Voids 1 Weight 207 lb 14.4 oz Intake & Output: Intake & Output 12/27/17 12/28/17 12/28/17 21:59 05:59 13:59 Intake Total 154 / 154 354 / 354 Balance 154 / 154 354 / 354 Weight 207 lb 14.4 oz Intake: IV 54 / 54 54 / 54 Cleocin 600 mg In Dextrose 5% 54 54 / 54 in Water 50 ml @ 100 mls/hr IV Q8H [facility] Rx#:[id number] Oral 100 / 100 300 / 300 Other: Stool Size Small Stool Color Brown Stool Consistency Soft # Voids 1 Incision: Yes healing, Yes draining, Yes red, Yes swollen, Yes inflamed Incision clean and dry: Yes Dressing: Yes clean, Yes dry, Yes intact Weight bearing status: as tolerated Range of motion: full foot and ankle Neurological exam IM: Yes alert, Yes oriented X3, Yes motor sensory intact, Yes neurovascular intact Extremities exam IM: No calf tenderness, Yes normal capillary refill, Yes Foot pink and warm, Yes neurovascular intact Additional Comments: wound: -incision well approximated, no drainage -bullae flattened and ruptured. Abrased skin is without weepage. Fresh, healthy granulation tissue. After removing dressing, yellow purulent/silvadene on medial knee wound. - Periperhal Pulses Peripheral pulses: 2+: dorsalis pedis (L), dorsalis pedis (R), posterior tibialis (L), posterior tibialis (R) - Labs CBC & BMP: 12/25/17 05:51 12/16/17 16:09 Labs: Orthopedic Labs 12/16/17 16:09 PT 13.3 INR 1.0 12/25/17 12/24/17 12/23/17 05:51 05:11 06:00 Hgb 9.9 L 10.4 L 12.1 L Hct 29.2 L 31.1 L 36.6 L 12/16/17 16:10 Hgb 15.7 Hct 46.8 Assessment and Plan (1) Osteoarthritis, knee POD #6 s/p right TKA: -continue hospital stay to follow wound complication -pain control -home meds resume including Ativan -WBAT -continue current wound care regimen. Daily dressing changes with US Vashe -d/c IV abx, switch to PO -keep dressing on at all times Status: Acute
[2017-12-28] MEDS: METOPROLOL TARTRATE 50 MG TABLET PO SCH ×2 (09:06→20:05)
[2017-12-28] MEDS: DOCUSATE SODIUM 100 MG CAPSULE PO SCH ×2 (09:07→20:06)
[2017-12-28] MEDS: SILVER SULFADIAZINE CREAM.TOP 400GM TOPICAL SCH (11:08)
[2017-12-28] MEDS: CLINDAMYCIN 150 MG CAPSULE PO SCH ×3 (12:23→23:36)
[2017-12-28] MEDS: RIVAROXABAN 20 MG TABLET PO SCH (17:59)
[2017-12-28] MEDS: SENNOSIDES 1 TABLET PO SCH (20:06)
[2017-12-29] MEDS: CLINDAMYCIN 150 MG CAPSULE PO SCH ×3 (05:17→17:56)
[2017-12-29] MEDS: traMADol 50 MG TABLET PO PRN ×3 (05:24→22:12)
--- NOTE | 2017-12-29 07:07 | Orthopedic Progress Note ---
Subjective Patient information: Note initiated : 12/29/17 at 7:06 am Service Date, if different from initiated Date: [] Patient: Aaron Omalley 72 y/o M admitted on 12/22/17 for Wound Closure. Chief Complaint: [] Interval history: doing ok today. no new complaints Objective Vital signs: Vital Signs Temp Pulse Resp BP Pulse Ox 12/29/17 00:00 98.8 F 99 H 12 123/86 96 12/28/17 20:00 99.8 F H 106 H 12 123/78 97 12/28/17 15:03 97.3 F 18 121/80 99 12/28/17 12:00 97.6 F 18 112/72 98 Intake and Output 12/28/17 12/29/17 12/29/17 21:59 05:59 13:59 Intake Total 720 / 720 600 / 600 Balance 720 / 720 600 / 600 Intake: Oral 720 / 720 600 / 600 Other: Meal Dinner Half egg salad sandwich Percent of Meal Consumed 100% 100% Feeding Ability Independent Independent Stool Size Moderate Stool Consistency Soft # Voids 1 # Bowel Movements 1 Weight 209 lb Intake & Output: Intake & Output 12/28/17 12/29/17 12/29/17 21:59 05:59 13:59 Intake Total 720 / 720 600 / 600 Balance 720 / 720 600 / 600 Weight 209 lb Intake: Oral 720 / 720 600 / 600 Other: Meal Dinner Half egg salad sandwich Percent of Meal Consumed 100% 100% Feeding Ability Independent Independent Stool Size Moderate Stool Consistency Soft # Voids 1 # Bowel Movements 1 Incision: Yes healing, Yes inflamed Incision clean and dry: Yes Dressing: Yes clean, Yes dry, Yes intact Weight bearing status: full Neurological exam IM: Yes alert, Yes normal gait, Yes oriented X3, Yes motor sensory intact, Yes neurovascular intact Extremities exam IM: No calf tenderness, Yes Foot pink and warm, Yes neurovascular intact - Labs CBC & BMP: 12/25/17 05:51 12/16/17 16:09 Labs: Orthopedic Labs 12/16/17 16:09 PT 13.3 INR 1.0 12/25/17 12/24/17 12/23/17 05:51 05:11 06:00 Hgb 9.9 L 10.4 L 12.1 L Hct 29.2 L 31.1 L 36.6 L 12/16/17 16:10 Hgb 15.7 Hct 46.8 Assessment and Plan (1) Osteoarthritis, knee pod 7 s/p tka, bullous impetigo s/p reaction to dermabond improving with removal and sonny placement with abx wbat pain control dvt prophylaxis dc planning - rehab when stabilizes on oral antibiotics x 7 days Status: Acute
[2017-12-29] MEDS: METOPROLOL TARTRATE 50 MG TABLET PO SCH ×2 (09:53→20:08)
[2017-12-29] MEDS: DOCUSATE SODIUM 100 MG CAPSULE PO SCH ×2 (10:19→20:09)
[2017-12-29] MEDS: SILVER SULFADIAZINE CREAM.TOP 400GM TOPICAL SCH (10:23)
[2017-12-29] MEDS: RIVAROXABAN 20 MG TABLET PO SCH (17:55)
[2017-12-29] MEDS ORDERED: VANCOMYCIN PER PHARMACY IV SCH (18:34)
--- NOTE | 2017-12-29 18:50 | Infectious Disease Consult ---
History of Present Illness Patient information: Note initiated : 12/29/17 at 6:48 pm Service Date, if different from initiated Date: [] Patient: Aaron Omalley 72 y/o M admitted on 12/22/17 for Wound Closure. Chief Complaint: [] Consult date: 12/29/17 Requesting Physician: Zhen Kaufman Reason for Consult: Rt knee swelling Chief complaint: my right knee hurts History of present illness: 72 year old man with PMHx of: - severe OA - Afib, on BB, Xarelto Pt underwent Rt sided TKA on 12/22. Post op course complicated by appearance of blisters on POD3, along with temp of 100.8F. In addition, pt developed superificial ulceration thought to be sec to allergic reaction to Dermabond. Pt was started on IV Clindamycin switched to PO yesterday. Pt has been afebrile since 12/24. ID was consulted by Wound care. At time of visit today, pt endorsed pain in right knee, swelling. He endorsed 2-3 loose stools, semi formed since last few days. He expressed concerns about his knee if it is infected. He also added that his leg is swollen after surgery, and had bluish patches of skin around feet and inner groin. Review of Systems All systems PM: reviewed and no additional remarkable complaints except as stated Past History Past family history: not pertinent to current presentation Medications and Allergies Home Medications Medication Instructions Recorded Confirmed Type Ascorbate Calcium/Bioflavonoid 2 tab PO HS 12/16/17 12/16/17 History [Kelsea-C 500 mg Tablet] Ascorbate Calcium/Bioflavonoid 4 tab PO DAILY 12/16/17 12/16/17 History [Kelsea-C 500 mg Tablet] Glucosam/Davis-Col.cplx/D3/C/Mn 1 cap PO BID 12/16/17 12/22/17 History [Nfmwwawfioo-Pszlownzqzl-Z1 Cap] L. Acidophilus/L. Rhamnosus 1 cap PO BID 12/16/17 12/16/17 History [Probiotic 15 Billion Cell Cap] Metoprolol Tartrate [Lopressor] 50 mg PO BID 12/16/17 12/22/17 History Multivit,Ther Iron,Ca,FA & Min 1 tab PO BID 12/16/17 12/16/17 History [Multivitamin W/Minerals] Rivaroxaban [Xarelto] 20 mg PO QPMCC 12/16/17 12/22/17 History LORazepam [Ativan] 2 mg PO ONCE 12/22/17 12/22/17 History LORazepam [Ativan] 1 mg PO Q8HP PRN #6 tablet 12/24/17 Rx traMADol [Ultram] 50 mg PO Q4HP PRN #60 tab 12/24/17 Rx Allergies Allergy/AdvReac Type Severity Reaction Status Date / Time hydrocodone AdvReac Mild Nausea Verified 12/16/17 15:26 Physical Examination Vital signs: Temp Pulse Resp BP Pulse Ox 36.4 C 74 14 127/84 99 12/29/17 15:46 12/29/17 17:00 12/29/17 15:46 12/29/17 15:46 12/29/17 15:46 General appearance: no acute distress Eyes pulmonary: nonicteric Auscultation: bilateral: clear Cardiovascular: regular rate and rhythm Gastrointestinal: normoactive bowel sounds, non-tender Integumentary: other (has multiple purpuric lesions in right lower extremity in area of inner thigh and foot) Extremities: cool, other Gait: other (Rt knee: swollen, erythematous compared to left side. The sonny are well approximated with, no drainage from the incisions. Multiple areas of superficial erosion in and around right knee covered with local antiseptic cream ) Results - Laboratory Findings CBC and BMP: 12/25/17 05:51 12/16/17 16:09 PT/INR, D-dimer PT 13.3 sec (11.9-14.5) 12/16/17 16:09 INR 1.0 (0.9-1.1) 12/16/17 16:09 Abnormal lab findings: Abnormal Labs 12/16/17 12/16/17 12/23/17 16:10 16:20 06:00 Hgb 12.1 L Hct 36.6 L Lymph # (Auto) 1.4 L Urine Protein 30 A 12/24/17 12/25/17 05:11 05:51 Hgb 10.4 L 9.9 L Hct 31.1 L 29.2 L Lymph # (Auto) Urine Protein Assessment and Plan - Narrative A/P Narrative: A: 1. Rt knee swelling post right TKA on 12/22/17: - Presence of fluid filled blisters, fever 100.8F on POD 3, concerning for bullous impetigo, most commonly caused by Staph aureus - Superficial erosions and ulceration could be due to allergic reaction ( contact dermatitis) from Dermabond material 2. Antibiotic associate diarrhea 3. Purpuric lesions in Rt LE: sec to Ericto Recommendations: - Start IV Vancomycin with pharmacy -assisted dosing - Stop PO Clindamycin - Ordered CT right knee to assess for extent of swelling - agree with local wound care, leg elev - If pt has 3 or more loose stools, will plan for testing for Cdiff Plan dw with wound care and Ortho will follow Bk Bose MD Infectious diseases
--- NOTE | 2017-12-29 19:44 | General Surgery Consult Note ---
History of Present Illness Patient information: Note initiated : 12/29/17 at 7:39 pm Service Date, if different from initiated Date: [] Patient: Aaron Omalley 72 y/o M admitted on 12/22/17 for Wound Closure. Chief Complaint: [] Consult date: 12/28/17 Requesting physician: Zhen Kaufman (Wound Care Consult) History of present illness: I saw this patient along with Maryanne RN inpatient wound care nurse in [phone] on [facility] surgical floor on 12/28/2017. Consultation was requested for evaluation and management of a post surgical inflammatory/infective skin and subcutaneous lesions along the anterior aspect of left knee and lower thigh. This patient has undergone left total knee replacement over 1 week ago. Subsequently he was noted to have epidermolysis with scattered blisters and superficial skin necrosis adjacent to the sonny on either side. The exact etiology was not known but this was suspected to be spreading streptococcal skin and skin structure infection. An allergic response was considered clinically. This seems unlikely. Patient does not have any constitutional symptoms of fever, chills right worse nausea vomiting or specific systemic complaints. He has extensive ecchymosis along the medial aspect of thigh and along the heel and ankle areas. He has been on oral anticoagulant Eloquis in the past. He is in the hospital for over one week due to this post surgical development / complication and element of skin and skin structure infection with underlying subcutaneous fluid recommendation and postsurgical changes in resolution. There is no evidence of purulence. He was treated perioperatively with intravenous antibiotics and subsequently with oral antibiotics. Medications and Allergies Home Medications Medication Instructions Recorded Confirmed Type Ascorbate Calcium/Bioflavonoid 2 tab PO HS 12/16/17 12/16/17 History [Kelsea-C 500 mg Tablet] Ascorbate Calcium/Bioflavonoid 4 tab PO DAILY 12/16/17 12/16/17 History [Kelsea-C 500 mg Tablet] Glucosam/Davis-Col.cplx/D3/C/Mn 1 cap PO BID 12/16/17 12/22/17 History [Ucdeofnslnl-Hryuezvfpko-J6 Cap] L. Acidophilus/L. Rhamnosus 1 cap PO BID 12/16/17 12/16/17 History [Probiotic 15 Billion Cell Cap] Metoprolol Tartrate [Lopressor] 50 mg PO BID 12/16/17 12/22/17 History Multivit,Ther Iron,Ca,FA & Min 1 tab PO BID 12/16/17 12/16/17 History [Multivitamin W/Minerals] Rivaroxaban [Xarelto] 20 mg PO QPMCC 12/16/17 12/22/17 History LORazepam [Ativan] 2 mg PO ONCE 12/22/17 12/22/17 History LORazepam [Ativan] 1 mg PO Q8HP PRN #6 tablet 12/24/17 Rx traMADol [Ultram] 50 mg PO Q4HP PRN #60 tab 12/24/17 Rx Allergies Allergy/AdvReac Type Severity Reaction Status Date / Time hydrocodone AdvReac Mild Nausea Verified 12/16/17 15:26 Exam Temp Pulse Resp BP Pulse Ox 97.6 F 74 14 127/84 99 12/29/17 15:46 12/29/17 17:00 12/29/17 15:46 12/29/17 15:46 12/29/17 15:46 - General physical appearance well developed, well nourished, no distress - Eyes PERRL - ENT normal pinna, normal nares, normal mucosa, no congestion - Head Head exam IM: Present: atraumatic, normal inspection, normocephalic - Neck no masses, no bruits, trachea midline - Cardiovascular Cardiovascular exam IM: Present: normal rate and rhythm - Respiratory normal expansion, clear to auscultation - Abdomen Abdomen: Present: soft, non tender, bowel sounds - Integumentary Present: other (Scattered ecchymosis epidermolysis along the incision site and medial / lateral aspects of the knee. There is subcutaneous ecchymosis extending along the medial aspect of upper thigh onto the groin area. Scattered ecchymosis patches on the ankle. Postsurgical changes and soft tissue edema and fluid along the lower anterior thigh and medial / lateral aspects of the knee. Pedal pulses are palpable. ) - Neurologic Present: normal coordination, normal sensation - Musculoskeletal Present: normal gait (ambulates with walker from the bed to the bathroom) - Psychiatric Present: oriented to time, oriented to person, oriented to place, speech is normal, memory intact Results - Labs 12/30/17 07:06 12/16/17 16:09 All other labs normal. Assessment and Plan (1) Cellulitis and abscess of other specified site Assessment: Post Surgical Cellulitis, CSSSI Left anterior kne and lower thigh area. Plan: See Orders: SANDRA, Wound care as ordered. Await I D input. Will follow patient during this hospitalization. Further recommendations as condition evolves. Status: Acute Priority: High
[2017-12-29] MEDS: SENNOSIDES 1 TABLET PO SCH (20:09)
[2017-12-29] MEDS ORDERED: VANCOMYCIN 1,500 MG in 0.9 % SODIUM CHLORIDE 500 ML IV SCH (21:00)
[2017-12-30] MEDS: traMADol 50 MG TABLET PO PRN ×3 (06:35→21:24)
--- NOTE | 2017-12-30 07:18 | Orthopedic Progress Note ---
Subjective Patient information: Note initiated : 12/30/17 at 7:15 am Service Date, if different from initiated Date: [] Patient: Aaron Omalley 72 y/o M admitted on 12/22/17 for Wound Closure. Chief Complaint: [POD #8 s/p right TKA with post op wound complication Patient states he feels the best he's ever felt today post operatively. His pain is much improved. His leg is a lot less painless. He denies CP, SOB, numbness, tingling, nausea, vomiting, diarrhea. We discussed Dr. Bose's impression at length.] Objective Vital signs: Vital Signs Temp Pulse Resp BP Pulse Ox 12/30/17 06:57 98.5 F 18 133/78 95 12/30/17 04:00 98.4 F 76 12 121/77 98 12/29/17 23:00 98.9 F 52 L 12 119/78 94 12/29/17 20:00 98.8 F 90 12 113/71 99 12/29/17 17:00 74 12/29/17 15:46 97.6 F 74 14 127/84 99 12/29/17 12:00 98 F 80 14 124/73 98 12/29/17 08:15 75 12/29/17 08:00 99.3 F H 75 14 132/82 99 Intake and Output 12/29/17 12/30/17 12/30/17 21:59 05:59 13:59 Intake Total 540 / 540 1810 / 1810 Balance 540 / 540 1810 / 1810 Intake: IV 500 / 500 Vancomycin 1,500 mg In Sodium 500 / 500 Chloride 0.9% 500 ml @ 250 mls/ hr IV Q12H [facility] Rx#:[id number] Oral 540 / 540 1310 / 1310 Other: Meal Dinner Peaches (2 serving packages) Percent of Meal Consumed 100% 100% Feeding Ability Independent Independent Stool Size Moderate Stool Consistency Formed # Voids 1 1 # Bowel Movements 1 Weight 209 lb 8 oz Intake & Output: Intake & Output 12/29/17 12/30/17 12/30/17 21:59 05:59 13:59 Intake Total 540 / 540 1810 / 1810 Balance 540 / 540 1810 / 1810 Weight 209 lb 8 oz Intake: IV 500 / 500 Vancomycin 1,500 mg In Sodium 500 / 500 Chloride 0.9% 500 ml @ 250 mls/ hr IV Q12H [facility] Rx#:[id number] Oral 540 / 540 1310 / 1310 Other: Meal Dinner Peaches (2 serving packages) Percent of Meal Consumed 100% 100% Feeding Ability Independent Independent Stool Size Moderate Stool Consistency Formed # Voids 1 1 # Bowel Movements 1 Incision: Yes healing, No draining, Yes red, Yes swollen, Yes inflamed, Yes clean and dry Incision clean and dry: Yes Dressing: Yes clean, Yes intact Weight bearing status: as tolerated Neurological exam IM: Yes alert, Yes oriented X3, Yes motor sensory intact, Yes neurovascular intact Extremities exam IM: No calf tenderness, Yes normal capillary refill, Yes normal inspection, Yes Foot pink and warm, Yes neurovascular intact Additional Comments: right anterior knee- adaptic dressing in place with silvadene cream. Blisters improved/gone. Skin surrounding incision healing nicely. Granulating well and much smaller than before. - Periperhal Pulses Peripheral pulses: 2+: dorsalis pedis (L), dorsalis pedis (R), posterior tibialis (L), posterior tibialis (R) - Labs CBC & BMP: 12/25/17 05:51 12/16/17 16:09 Labs: Orthopedic Labs 12/16/17 16:09 PT 13.3 INR 1.0 12/30/17 12/25/17 12/24/17 07:06 05:51 05:11 Hgb Pending 9.9 L 10.4 L Hct Pending 29.2 L 31.1 L 12/23/17 12/16/17 06:00 16:10 Hgb 12.1 L 15.7 Hct 36.6 L 46.8 Assessment and Plan (1) Osteoarthritis, knee POD #8 s/p right TKA: -ID consult recommends IV vanco, duration unknown. Dr. Boes to follow. Continue wound care management and dressing changes. CT scan pending. Gram stain pending. -CBC pending for today -pain control -WBAT -d/c planning to SNF likely 12/31/17 or 01/01/18 Status: Acute
[2017-12-30 07:37] LABS: Basophils # (Auto) 0 K/mcL (0.0-0.3); Basophils % (Auto) 0.1 % (0.0-2.0); Eosinophils # (Auto) 0.2 K/mcL (0.0-0.7); Eosinophils % (Auto) 2.7 % (0.0-7.0); Granulocytes % (Auto) 73.6 % (38.0-78.0); Lymphocytes # (Auto) 0.8 K/mcL (1.5-4.8); Lymphocytes % (Auto) 12.8 % (15.5-49.0); Mean Cell Volume 94.4 fL (80.0-100.0); Mean Corpuscular HGB Conc 33.5 g/dL (31.0-36.0); Mean Corpuscular Hemoglobin 31.7 pg (26.0-34.0); Monocytes # (Auto) 0.7 K/mcL (0.1-0.9); Monocytes % (Auto) 10.8 % (1.0-12.0); Platelet Count 272 K/mcL (140-440); RBC 2.89 M/mcL (4.50-5.90)
[2017-12-30] MEDS: METOPROLOL TARTRATE 50 MG TABLET PO SCH ×2 (08:13→21:21)
[2017-12-30] MEDS: DOCUSATE SODIUM 100 MG CAPSULE PO SCH ×3 (08:13→21:27)
--- NOTE | 2017-12-30 09:12 | Cat Scan Report ---
CLINICAL INFORMATION: Previous right total knee arthroplasty. History of infection swelling. Patient has been treated with vancomycin and is mildly improved TECHNIQUE: Axial thin section images through the right knee. Sagittal and coronal reformatted images COMPARISON: Postoperative plain film examination dated 12/22/2017 FINDINGS: Status post right total knee arthroplasty. No CT evidence for loosening or osteomyelitis. No cortical destruction or periosteal new bone formation. There is some gas within the proximal tibial diaphysis and distal femur. This is considered postsurgical. There is mild soft tissue gas in the anterior soft tissues. There is probably prepatellar bursal fluid and gas bubbles. No discrete, defined abscess. IMPRESSION: 1. No CT evidence for osteomyelitis 2. Intramedullary and soft tissue gas bubbles are probably postsurgical 3. Prepatellar soft tissue swelling and probable bursal fluid. 4. Status post right total knee arthroplasty Interpreted and Authenticated by: Zhen Maki 12/30/17
[2017-12-30] MEDS: VANCOMYCIN 1,500 MG in 0.9 % SODIUM CHLORIDE 500 ML IV SCH ×2 (09:44→21:28)
[2017-12-30] MEDS: SILVER SULFADIAZINE CREAM.TOP 400GM TOPICAL SCH (14:30)
--- NOTE | 2017-12-30 15:15 | Infectious Disease Prog Note ---
Subjective Patient information: Note initiated : 12/30/17 at 2:44 pm Service Date, if different from initiated Date: [] Patient: Aaron Omalley 72 y/o M admitted on 12/22/17 for Wound Closure. Chief Complaint: [] Interval history: Patient is doing well. He was ecstatic at the time of morning visit as his pain in knee was much better. denied any fever, chills, n/v, diarrhea. Objective Objective Narrative: ao x 3, in nad chest cta s1 s2 normal bs ++ nttd Rt knee: looks less swollen compared to yesterday, although still with fluctuant swelling around the knee. The superficial ulcers seem to have scabbed in certain areas. Leg is still swollen anteriorly with purpura in dependent areas of leg and foot - Vital Signs Vital signs: Vital Signs Temp Pulse Resp BP Pulse Ox 12/30/17 12:00 37.1 C 18 130/79 98 12/30/17 06:57 36.9 C 18 133/78 95 12/30/17 04:00 36.9 C 76 12 121/77 98 12/29/17 23:00 37.2 C 52 L 12 119/78 94 12/29/17 20:00 37.1 C 90 12 113/71 99 12/29/17 17:00 74 12/29/17 15:46 36.4 C 74 14 127/84 99 Intake and Output 12/30/17 12/30/17 12/30/17 05:59 13:59 21:59 Intake Total 1809 Balance 1809 Intake: IV 500 / 500 Vancomycin 1,500 mg In Sodium 500 / 500 Chloride 0.9% 500 ml @ 250 mls/ hr IV Q12H [facility] Rx#:[id number] Oral 1310 / 1310 Other: Meal [place] (2 serving packages) Percent of Meal Consumed 100% Feeding Ability Independent Stool Size Moderate Moderate Stool Color Brown Stool Consistency Formed Formed # Voids 1 1 # Bowel Movements 1 1 Intake & Output: Intake & Output 12/30/17 12/30/17 12/30/17 05:59 13:59 21:59 Intake Total 1809 Balance 1809 Intake: IV 500 / 500 Vancomycin 1,500 mg In Sodium 500 / 500 Chloride 0.9% 500 ml @ 250 mls/ hr IV Q12H [facility] Rx#:[id number] Oral 1310 / 1310 Other: Meal [place] (2 serving packages) Percent of Meal Consumed 100% Feeding Ability Independent Stool Size Moderate Moderate Stool Color Brown Stool Consistency Formed Formed # Voids 1 1 # Bowel Movements 1 1 - Lab 12/30/17 07:06 12/16/17 16:09 Most recent lab results Calcium 9.2 mg/dl (8.6-10.4) 12/16/17 16:09 Microbiology 12/30/17 12:34 Nose - Both Right and Left MRSA (PCR) - Final 12/29/17 17:30 Knee - Right Gram Stain - Final 12/29/17 17:30 Knee - Right Wound Culture - Preliminary Medications Active Medications: Acetaminophen (Tylenol) 650 mg PO Q4HP PRN PRN Reason: PAIN/FEVER > 101 Bisacodyl (Dulcolax) 10 mg SC Q2-3DAYS PRN PRN Reason: Constipation Last Admin: 12/24/17 14:41 Dose: 10 mg Docusate Sodium (Colace) 100 mg PO BID [facility] Last Admin: 12/30/17 08:13 Dose: Not Given Non-Admin Reason: Patient Refused Admin: 12/29/17 20:09 Dose: Not Given Non-Admin Reason: Patient Refused Admin: 12/29/17 10:19 Dose: Not Given Non-Admin Reason: Loose Stool Admin: 12/28/17 20:06 Dose: Not Given Non-Admin Reason: Patient Refused Admin: 12/28/17 09:07 Dose: Admin: 12/27/17 20:20 Dose: 100 mg Admin: 12/27/17 08:50 Dose: 100 mg Admin: 12/26/17 20:13 Dose: 100 mg Admin: 12/26/17 08:56 Dose: 100 mg Admin: 12/25/17 20:58 Dose: 100 mg Admin: 12/25/17 08:38 Dose: 100 mg Admin: 12/24/17 20:49 Dose: 100 mg Admin: 12/24/17 07:58 Dose: 100 mg Admin: 12/23/17 22:06 Dose: 100 mg Admin: 12/23/17 07:56 Dose: 100 mg Admin: 12/22/17 23:17 Dose: 100 mg Acetaminophen (Ofirmev) 1,000 mg in 100 mls @ 200 mls/hr IV Q6HP PRN PRN Reason: Pain Last Admin: 12/23/17 03:18 Dose: 200 mls/hr Vancomycin HCl 1,500 mg/ (Sodium Chloride) 500 mls @ 333.3 mls/hr IV Q12H [facility] Last Admin: 12/30/17 09:44 Dose: 333.3 mls/hr Lorazepam (Ativan) 1 mg PO Q8HP PRN PRN Reason: ANXIETY/SEDATION Last Admin: 12/26/17 15:24 Dose: 1 mg Admin: 12/25/17 07:47 Dose: 1 mg Admin: 12/24/17 08:09 Dose: 1 mg Magnesium Hydroxide (Milk Of Magnesia) 30 ml PO BIDP PRN PRN Reason: Constipation Last Admin: 12/24/17 17:14 Dose: 30 ml Methocarbamol (Robaxin) 750 mg PO Q6HP PRN PRN Reason: Muscle Spasm Metoprolol Tartrate (Lopressor) 50 mg PO BID [facility] Last Admin: 12/30/17 08:13 Dose: 50 mg Admin: 12/29/17 20:08 Dose: 50 mg Admin: 12/29/17 09:53 Dose: 50 mg Admin: 12/28/17 20:05 Dose: 50 mg Admin: 12/28/17 09:06 Dose: 50 mg Admin: 12/27/17 20:20 Dose: 50 mg Admin: 12/27/17 08:50 Dose: 50 mg Admin: 12/26/17 20:13 Dose: 50 mg Admin: 12/26/17 08:56 Dose: 50 mg Admin: 12/25/17 20:58 Dose: 50 mg Admin: 12/25/17 08:38 Dose: 50 mg Admin: 12/24/17 20:49 Dose: 50 mg Admin: 12/24/17 07:59 Dose: 50 mg Admin: 12/23/17 22:06 Dose: 50 mg Admin: 12/23/17 07:56 Dose: 50 mg Admin: 12/22/17 23:17 Dose: 50 mg Morphine Sulfate (Morphine) 0 mg IV Q1HP PRN PRN Reason: PAIN LEVEL > 6 Ondansetron HCl (Zofran) 4 mg IV Q4HP PRN PRN Reason: Nausea And Vomiting Ondansetron HCl (Zofran Odt) 4 mg SL Q4HP PRN PRN Reason: Nausea And Vomiting Oxycodone/Acetaminophen (Percocet 5-325 Mg) 0 tab PO Q4HP PRN PRN Reason: PAIN LEVEL 3-6 Polyethylene Glycol (Miralax) 17 gm PO DAILYP PRN PRN Reason: Constipation Last Admin: 12/25/17 05:09 Dose: 17 gm Admin: 12/24/17 07:59 Dose: 17 gm Rivaroxaban (Xarelto) 20 mg PO QPMCC [facility] Last Admin: 12/29/17 17:55 Dose: 20 mg Admin: 12/28/17 17:59 Dose: 20 mg Admin: 12/27/17 17:55 Dose: 20 mg Admin: 12/26/17 17:27 Dose: 20 mg Admin: 12/25/17 17:46 Dose: 20 mg Admin: 12/24/17 17:14 Dose: 20 mg Admin: 12/23/17 17:03 Dose: 20 mg Admin: 12/22/17 23:17 Dose: 20 mg Senna (Senokot) 2 tab PO HS [facility] Last Admin: 12/29/17 20:09 Dose: Not Given Non-Admin Reason: Patient Refused Admin: 12/28/17 20:06 Dose: Not Given Non-Admin Reason: Patient Refused Admin: 12/27/17 20:20 Dose: 2 tab Admin: 12/26/17 20:13 Dose: 2 tab Admin: 12/25/17 20:58 Dose: 2 tab Admin: 12/24/17 20:49 Dose: 2 tab Admin: 12/23/17 22:06 Dose: 2 tab Admin: 12/22/17 23:17 Dose: 2 tab Silver Sulfadiazine (Silvadene) 1 dose TOPICAL DAILY [facility] Last Admin: 12/29/17 10:23 Dose: 1 dose Admin: 12/28/17 11:08 Dose: 1 dose Admin: 12/27/17 08:52 Dose: 1 dose Admin: 12/26/17 16:05 Dose: 1 dose Sodium Biphosphate/Sodium Phosphate (Fleets Adult) 1 dose SC Q3-4DAYS PRN PRN Reason: Constipation Throat Lozenges (Cepacol) 1 lozenge PO PRN PRN PRN Reason: Sore Throat Tramadol HCl (Ultram) 0 mg PO Q4HP PRN PRN Reason: Pain Last Admin: 12/30/17 13:40 Dose: 100 mg Admin: 12/30/17 06:35 Dose: 100 mg Admin: 12/29/17 22:12 Dose: 50 mg Admin: 12/29/17 17:55 Dose: 100 mg Admin: 12/29/17 05:24 Dose: 100 mg Admin: 12/28/17 20:00 Dose: 100 mg Admin: 12/28/17 12:08 Dose: 50 mg Admin: 12/28/17 05:58 Dose: 100 mg Admin: 12/27/17 18:03 Dose: 100 mg Admin: 12/27/17 06:43 Dose: 100 mg Admin: 12/26/17 17:27 Dose: 50 mg Admin: 12/26/17 12:26 Dose: 50 mg Admin: 12/26/17 06:28 Dose: 100 mg Vancomycin HCl (Vancomycin Per Pharmacy) 1 order IV UD [facility] Assessment and Plan - Narrative A/P Narrative: A: 1. Rt knee swelling post right TKA on 12/22/17: improving - Presence of fluid filled blisters, fever 100.8F on POD 3, concerning for bullous impetigo, most commonly caused by Staph aureus - Superficial erosions and ulceration could be due to allergic reaction ( contact dermatitis) from Dermabond material - CT knee neg for any signif infection. Has postop fluid collection 2. Antibiotic associate diarrhea : not concerning for Cdiff given stool consistency is semi-formed and 2-3 times/day 3. Purpuric lesions in Rt LE: sec to [facility] Recommendations: - Continue IV Vancomycin with pharmacy -assisted dosing until tomorrow. - Start PO Linezolid 600 mg q12 hrs tomorrow am, with plan to do a 2 week course with stop date of 01/14/18 - Pt should follow up with wound care and Ortho to make sure that the knee swelling continues to get better will follow while inpatient Bk Bose MD Infectious diseases
--- NOTE | 2017-12-30 15:22 | General Surgery Progress Note ---
Subjective Patient reports: other (I saw this patient in the morning. He was ambulating in the hallway along with physical therapist. Subsequently I reassessed him after the CT scan and examined his wound along with Dr. Bose, infectious disease.) Narrative: Note initiated : 12/30/17 at 3:18 pm Service Date, if different from initiated Date: [] Patient: Aaron Omalley 72 y/o M admitted on 12/22/17 for Wound Closure. Chief Complaint: [] Objective Temp Pulse Resp BP Pulse Ox 98.7 F 76 18 130/79 98 12/30/17 12:00 12/30/17 04:00 12/30/17 12:00 12/30/17 12:00 12/30/17 12:00 Afebrile. Vital signs are stable. No acute changes in clinical examination. General physical examination is unremarkable. Patient is ambulating in the hallway with a walker. Lab results reviewed. Postoperative anemia. This should improve gradually. Patient is on regular diet and hematinics. CT scan shows normal alignment of knee, bony contours and no evidence of osteomyelitis. Inflammatory postsurgical changes are noted in the skin and subcutaneous tissue. Clinically, there is significant improvement in his wound with local treatment using cleansing with Vashe and topical application of Silvadene cream. Patient's antibiotics adjusted and he is now on intravenous vancomycin. Responding to same satisfactorily. - Additional Data Intake & Output - Last 24 hours: Intake & Output 12/28/17 12/29/17 12/30/17 12/31/17 05:59 05:59 05:59 05:59 Intake Total 1852 / 1852 1320 / 1320 2500 / 2500 Balance 1852 / 1852 1320 / 1320 2500 / 2500 Weight 207 lb 14.4 oz 209 lb 209 lb 8 oz - Labs 12/30/17 07:06 12/16/17 16:09 Assessment and Plan - Narrative A/P Narrative: Assessment: Satisfactory progress from the wound care services point of view. Expect gradual improvement over a period of time. Patient will benefit from postoperative rehabilitation and follow-up at the wound care clinic on an outpatient basis. Plan: Continue current treatment. Antibiotics per Dr. Bose. Follow-up with the wound care clinic in 1 week after discharge. - Time Spent With Patient Total time spent is greater than 50% in coordination of care (as documented) at patient's floor/unit and/or counseling patient: 25 - 35 minutes
[2017-12-30] MEDS: RIVAROXABAN 20 MG TABLET PO SCH (17:51)
[2017-12-30] MEDS: SENNOSIDES 1 TABLET PO SCH ×2 (21:21→21:28)
[2017-12-31] MEDS: traMADol 50 MG TABLET PO PRN ×2 (05:02→10:36)
--- NOTE | 2017-12-31 08:34 | Orthopedic Progress Note ---
Subjective Patient information: Note initiated : 12/31/17 at 7:14 am Service Date, if different from initiated Date: [] Patient: Aaron Omalley 72 y/o M admitted on 12/22/17 for Wound Closure. Chief Complaint: [] Interval history: doing much better today. incision improving Objective Vital signs: Vital Signs Temp Pulse Resp BP Pulse Ox 12/31/17 04:30 99.5 F H 86 16 132/82 98 12/31/17 00:00 98.8 F 83 16 137/85 100 12/30/17 20:00 98.2 F 80 16 135/79 96 12/30/17 16:00 98.1 F 20 125/89 94 12/30/17 12:00 98.7 F 18 130/79 98 Intake and Output 12/30/17 12/31/17 12/31/17 21:59 05:59 13:59 Intake Total 870 / 870 420 / 420 Balance 870 / 870 420 / 420 Intake: IV 500 / 500 Vancomycin 1,500 mg In Sodium 500 / 500 Chloride 0.9% 500 ml @ 333.3 mls/hr IV Q12H [facility] Rx#: [id number] Oral 370 / 370 420 / 420 Other: Meal [place] Percent of Meal Consumed 100% 100% Feeding Ability Independent Independent Stool Size Moderate Stool Consistency Formed # Voids 1 # Bowel Movements 1 Weight 209 lb Intake & Output: Intake & Output 12/30/17 12/31/17 12/31/17 21:59 05:59 13:59 Intake Total 870 / 870 420 / 420 Balance 870 / 870 420 / 420 Weight 209 lb Intake: IV 500 / 500 Vancomycin 1,500 mg In Sodium 500 / 500 Chloride 0.9% 500 ml @ 333.3 mls/hr IV Q12H [facility] Rx#: [id number] Oral 370 / 370 420 / 420 Other: Meal Dinner [place] Percent of Meal Consumed 100% 100% Feeding Ability Independent Independent Stool Size Moderate Stool Consistency Formed # Voids 1 # Bowel Movements 1 Incision: Yes healing Incision clean and dry: Yes Dressing: Yes clean, Yes dry, Yes intact Weight bearing status: full Neurological exam IM: Yes alert, Yes oriented X3, Yes neurovascular intact Extremities exam IM: No calf tenderness, Yes Foot pink and warm, Yes neurovascular intact - Labs CBC & BMP: 12/30/17 07:06 12/16/17 16:09 Labs: Orthopedic Labs 12/16/17 16:09 PT 13.3 INR 1.0 12/30/17 12/25/17 12/24/17 07:06 05:51 05:11 Hgb 9.1 L 9.9 L 10.4 L Hct 27.2 L 29.2 L 31.1 L 12/23/17 12/16/17 06:00 16:10 Hgb 12.1 L 15.7 Hct 36.6 L 46.8 Assessment and Plan (1) Osteoarthritis, knee pod 9 s/p tka, bullous impetigo s/p reaction to dermabond improving with removal and sonny placement with abx wbat pain control dvt prophylaxis dc planning - plan rehab tomorrow Status: Acute
[2017-12-31] MEDS: DOCUSATE SODIUM 100 MG CAPSULE PO SCH ×3 (08:47→20:54)
[2017-12-31] MEDS: METOPROLOL TARTRATE 50 MG TABLET PO SCH ×2 (08:47→20:52)
[2017-12-31] MEDS: SILVER SULFADIAZINE CREAM.TOP 400GM TOPICAL SCH (08:48)
[2017-12-31] MEDS: VANCOMYCIN 1,500 MG in 0.9 % SODIUM CHLORIDE 500 ML IV SCH (10:36)
--- NOTE | 2017-12-31 16:00 | General Surgery Progress Note ---
Subjective Patient reports: no new complaints Narrative: Note initiated : 12/31/17 at 3:58 pm Service Date, if different from initiated Date: [] Patient: Aaron Omalley 72 y/o M admitted on 12/22/17 for Wound Closure. Chief Complaint: [] Objective Temp Pulse Resp BP Pulse Ox 96.9 F L 101 H 14 125/78 98 12/31/17 12:00 12/31/17 12:15 12/31/17 12:00 12/31/17 12:00 12/31/17 12:00 Afebrile vital signs are stable. Local examination resolving post inflammatory changes and decreasing subcutaneous edema, postsurgical changes. Continues to make progress with physical therapy and ambulates with a walker. - Additional Data Intake & Output - Last 24 hours: Intake & Output 12/29/17 12/30/17 12/31/17 01/01/18 05:59 05:59 05:59 05:59 Intake Total 1320 / 1320 2500 / 2500 1790 / 1790 650 / 650 Balance 1320 / 1320 2500 / 2500 1790 / 1790 650 / 650 Weight 209 lb 209 lb 8 oz 209 lb 209 lb - Labs 12/30/17 07:06 12/16/17 16:09 Assessment and Plan (1) Cellulitis and abscess of other specified site Status: Acute Assessment and plan: Assessment: Satisfactory progress from the wound care for W period Plan: Continue current treatment. Encourage ambulation. Cleared for discharge from wound care service to a rehabilitation facility [facility]. Upon discharge, follow-up at the wound care center in 1 week. Current Visit: Yes - Time Spent With Patient Total time spent is greater than 50% in coordination of care (as documented) at patient's floor/unit and/or counseling patient: less than 15 minutes
--- NOTE | 2017-12-31 17:13 | Infectious Disease Prog Note ---
Subjective Patient information: Note initiated : 12/31/17 at 5:09 pm Service Date, if different from initiated Date: [] Patient: Aaron Omalley 72 y/o M admitted on 12/22/17 for Wound Closure. Chief Complaint: [] Interval history: Patient doing much better. He is weightbearing as tolerated and has been moving around with the help of walker. Denies any fever, chills, nausea, vomiting, diarrhea. Objective Objective Narrative: Alert oriented x3 Chest clear to auscultation Heart sounds normal Right knee wrapped in dressing with some soakage on it. Patient showed the pictures on his phone and in the pictures the wound looks improved compared to 2 days ago. There is areas of superficial erosions around the knee but the incision looks well approximated with the sonny without any areas of gaping - Vital Signs Vital signs: Vital Signs Temp Pulse Resp BP Pulse Ox 12/31/17 16:15 88 12/31/17 16:00 36.4 C 83 16 127/68 99 12/31/17 12:15 101 H 12/31/17 12:00 36.1 C L 84 14 125/78 98 12/31/17 08:30 99 H 12/31/17 07:30 105 H 16 98 12/31/17 07:23 36.1 C 112 H 16 122/78 94 12/31/17 04:30 37.5 C H 86 16 132/82 98 12/31/17 00:00 37.1 C 83 16 137/85 100 12/30/17 20:00 36.8 C 80 16 135/79 96 Intake and Output 12/31/17 12/31/17 12/31/17 05:59 13:59 21:59 Intake Total 920 / 920 650 / 650 200 / 200 Balance 920 / 920 650 / 650 200 / 200 Intake: IV 500 / 500 500 / 500 Vancomycin 1,500 mg In Sodium 500 / 500 500 / 500 Chloride 0.9% 500 ml @ 333.3 mls/hr IV Q12H [facility] Rx#: [id number] Oral 420 / 420 150 / 150 200 / 200 Other: Meal [place] Percent of Meal Consumed 100% 100% Feeding Ability Independent Independent Stool Size Moderate Stool Consistency Formed # Voids 1 1 1 # Bowel Movements 1 Weight 94.801 kg Patient Weight 01/01/18 05:59 Weight 94.801 kg Intake & Output: Intake & Output 12/31/17 12/31/17 12/31/17 05:59 13:59 21:59 Intake Total 920 / 920 650 / 650 200 / 200 Balance 920 / 920 650 / 650 200 / 200 Weight 94.801 kg Intake: IV 500 / 500 500 / 500 Vancomycin 1,500 mg In Sodium 500 / 500 500 / 500 Chloride 0.9% 500 ml @ 333.3 mls/hr IV Q12H [facility] Rx#: [id number] Oral 420 / 420 150 / 150 200 / 200 Other: Meal [place] Percent of Meal Consumed 100% 100% Feeding Ability Independent Independent Stool Size Moderate Stool Consistency Formed # Voids 1 1 1 # Bowel Movements 1 - Lab 12/30/17 07:06 12/16/17 16:09 Most recent lab results Calcium 9.2 mg/dl (8.6-10.4) 12/16/17 16:09 Microbiology 12/29/17 17:30 Knee - Right Gram Stain - Final 12/29/17 17:30 Knee - Right Wound Culture - Final 12/30/17 12:34 Nose - Both Right and Left MRSA (PCR) - Final Medications Active Medications: Acetaminophen (Tylenol) 650 mg PO Q4HP PRN PRN Reason: PAIN/FEVER > 101 Bisacodyl (Dulcolax) 10 mg ND Q2-3DAYS PRN PRN Reason: Constipation Last Admin: 12/24/17 14:41 Dose: 10 mg Docusate Sodium (Colace) 100 mg PO BID [facility] Last Admin: 12/31/17 08:47 Dose: Not Given Non-Admin Reason: Patient Refused Admin: 12/30/17 21:27 Dose: Not Given Non-Admin Reason: Patient Refused Admin: 12/30/17 08:13 Dose: Not Given Non-Admin Reason: Patient Refused Admin: 12/29/17 20:09 Dose: Not Given Non-Admin Reason: Patient Refused Admin: 12/29/17 10:19 Dose: Not Given Non-Admin Reason: Loose Stool Admin: 12/28/17 20:06 Dose: Not Given Non-Admin Reason: Patient Refused Admin: 12/28/17 09:07 Dose: Admin: 12/27/17 20:20 Dose: 100 mg Admin: 12/27/17 08:50 Dose: 100 mg Admin: 12/26/17 20:13 Dose: 100 mg Admin: 12/26/17 08:56 Dose: 100 mg Admin: 12/25/17 20:58 Dose: 100 mg Admin: 12/25/17 08:38 Dose: 100 mg Admin: 12/24/17 20:49 Dose: 100 mg Admin: 12/24/17 07:58 Dose: 100 mg Admin: 12/23/17 22:06 Dose: 100 mg Admin: 12/23/17 07:56 Dose: 100 mg Admin: 12/22/17 23:17 Dose: 100 mg Acetaminophen (Ofirmev) 1,000 mg in 100 mls @ 200 mls/hr IV Q6HP PRN PRN Reason: Pain Last Admin: 12/23/17 03:18 Dose: 200 mls/hr Vancomycin HCl 1,500 mg/ (Sodium Chloride) 500 mls @ 333.3 mls/hr IV Q12H [facility] Last Infusion: 12/31/17 12:20 Dose: 0 mls/hr Admin: 12/31/17 10:36 Dose: 333 mls/hr Infusion: 12/30/17 23:00 Dose: 0 mls/hr Admin: 12/30/17 21:28 Dose: 333 mls/hr Infusion: 12/30/17 15:38 Dose: 0 mls/hr Admin: 12/30/17 09:44 Dose: 333.3 mls/hr Lorazepam (Ativan) 1 mg PO Q8HP PRN PRN Reason: ANXIETY/SEDATION Last Admin: 12/26/17 15:24 Dose: 1 mg Admin: 12/25/17 07:47 Dose: 1 mg Admin: 12/24/17 08:09 Dose: 1 mg Magnesium Hydroxide (Milk Of Magnesia) 30 ml PO BIDP PRN PRN Reason: Constipation Last Admin: 12/24/17 17:14 Dose: 30 ml Methocarbamol (Robaxin) 750 mg PO Q6HP PRN PRN Reason: Muscle Spasm Metoprolol Tartrate (Lopressor) 50 mg PO BID [facility] Last Admin: 12/31/17 08:47 Dose: 50 mg Admin: 12/30/17 21:21 Dose: 50 mg Admin: 12/30/17 08:13 Dose: 50 mg Admin: 12/29/17 20:08 Dose: 50 mg Admin: 12/29/17 09:53 Dose: 50 mg Admin: 12/28/17 20:05 Dose: 50 mg Admin: 12/28/17 09:06 Dose: 50 mg Admin: 12/27/17 20:20 Dose: 50 mg Admin: 12/27/17 08:50 Dose: 50 mg Admin: 12/26/17 20:13 Dose: 50 mg Admin: 12/26/17 08:56 Dose: 50 mg Admin: 12/25/17 20:58 Dose: 50 mg Admin: 12/25/17 08:38 Dose: 50 mg Admin: 12/24/17 20:49 Dose: 50 mg Admin: 12/24/17 07:59 Dose: 50 mg Admin: 12/23/17 22:06 Dose: 50 mg Admin: 12/23/17 07:56 Dose: 50 mg Admin: 12/22/17 23:17 Dose: 50 mg Morphine Sulfate (Morphine) 0 mg IV Q1HP PRN PRN Reason: PAIN LEVEL > 6 Ondansetron HCl (Zofran) 4 mg IV Q4HP PRN PRN Reason: Nausea And Vomiting Ondansetron HCl (Zofran Odt) 4 mg SL Q4HP PRN PRN Reason: Nausea And Vomiting Oxycodone/Acetaminophen (Percocet 5-325 Mg) 0 tab PO Q4HP PRN PRN Reason: PAIN LEVEL 3-6 Polyethylene Glycol (Miralax) 17 gm PO DAILYP PRN PRN Reason: Constipation Last Admin: 12/25/17 05:09 Dose: 17 gm Admin: 12/24/17 07:59 Dose: 17 gm [facility] Last Admin: 12/30/17 17:51 Dose: 20 mg Admin: 12/29/17 17:55 Dose: 20 mg Admin: 12/28/17 17:59 Dose: 20 mg Admin: 12/27/17 17:55 Dose: 20 mg Admin: 12/26/17 17:27 Dose: 20 mg Admin: 12/25/17 17:46 Dose: 20 mg Admin: 12/24/17 17:14 Dose: 20 mg Admin: 12/23/17 17:03 Dose: 20 mg Admin: 12/22/17 23:17 Dose: 20 mg Senna (Senokot) 2 tab PO [facility] Last Admin: 12/30/17 21:28 Dose: Not Given Non-Admin Reason: Patient Refused Admin: 12/29/17 20:09 Dose: Not Given Non-Admin Reason: Patient Refused Admin: 12/28/17 20:06 Dose: Not Given Non-Admin Reason: Patient Refused Admin: 12/27/17 20:20 Dose: 2 tab Admin: 12/26/17 20:13 Dose: 2 tab Admin: 12/25/17 20:58 Dose: 2 tab Admin: 12/24/17 20:49 Dose: 2 tab Admin: 12/23/17 22:06 Dose: 2 tab Admin: 12/22/17 23:17 Dose: 2 tab Silver Sulfadiazine (Silvadene) 1 dose TOPICAL DAILY [facility] Last Admin: 12/31/17 08:48 Dose: 1 dose Comments: done by NICHOLAS Madden Admin: 12/30/17 14:30 Dose: 1 dose Admin: 12/29/17 10:23 Dose: 1 dose Admin: 12/28/17 11:08 Dose: 1 dose Admin: 12/27/17 08:52 Dose: 1 dose Admin: 12/26/17 16:05 Dose: 1 dose Sodium Biphosphate/Sodium Phosphate (Fleets Adult) 1 dose ND Q3-4DAYS PRN PRN Reason: Constipation Throat Lozenges (Cepacol) 1 lozenge PO PRN PRN PRN Reason: Sore Throat Tramadol HCl (Ultram) 0 mg PO Q4HP PRN PRN Reason: Pain Last Admin: 12/31/17 10:36 Dose: 100 mg Admin: 12/31/17 05:02 Dose: 100 mg Admin: 12/30/17 21:24 Dose: 50 mg Admin: 12/30/17 13:40 Dose: 100 mg Admin: 12/30/17 06:35 Dose: 100 mg Admin: 12/29/17 22:12 Dose: 50 mg Admin: 12/29/17 17:55 Dose: 100 mg Admin: 12/29/17 05:24 Dose: 100 mg Admin: 12/28/17 20:00 Dose: 100 mg Admin: 12/28/17 12:08 Dose: 50 mg Admin: 12/28/17 05:58 Dose: 100 mg Admin: 12/27/17 18:03 Dose: 100 mg Admin: 12/27/17 06:43 Dose: 100 mg Admin: 12/26/17 17:27 Dose: 50 mg Admin: 12/26/17 12:26 Dose: 50 mg Admin: 12/26/17 06:28 Dose: 100 mg Vancomycin HCl (Vancomycin Per Pharmacy) 1 order IV UD [facility] Assessment and Plan - Narrative A/P Narrative: A: 1. Rt knee swelling post right TKA on 12/22/17: improving significantly - Presence of fluid filled blisters, fever 100.8F on POD 3, concerning for bullous impetigo, most commonly caused by Staph aureus - Superficial erosions and ulceration could be due to allergic reaction ( contact dermatitis) from Dermabond material - CT knee neg for any signif infection. Has postop fluid collection -Wound cultures collected on 12/29 negative 2. Antibiotic associate diarrhea : not concerning for Cdiff given stool consistency is semi-formed and 2-3 times/day 3. Purpuric lesions in Rt LE: sec to Xarelto Recommendations: - Continue PO Linezolid 600 mg q12 hrs with plan to do a 2 week course with stop date of 01/14/18 - Pt should follow up with wound care and Ortho to make sure that the knee swelling continues to get better Will sign off. Thank you for the interesting consult Bk Bose MD Infectious diseases
[2017-12-31] MEDS: RIVAROXABAN 20 MG TABLET PO SCH (17:57)
[2017-12-31] MEDS: LINEZOLID 600 MG TABLET PO SCH (20:52)
[2017-12-31] MEDS: SENNOSIDES 1 TABLET PO SCH ×2 (20:52→20:54)
[2018-01-01] MEDS: traMADol 50 MG TABLET PO PRN ×2 (05:41→09:59)
--- NOTE | 2018-01-01 07:06 | Orthopedic Progress Note ---
Subjective Patient information: Note initiated : 01/01/18 at 7:02 am Service Date, if different from initiated Date: [] Patient: Aaron Omalley 72 y/o M admitted on 12/22/17 for Wound Closure. Chief Complaint: [POD #10 s/p right TKA with post op wound complication Patient much improved since even yesterday. Denies CP, SOB, numbness, tingling, calf pain.] Objective Vital signs: Vital Signs Temp Pulse Resp BP Pulse Ox 01/01/18 04:00 98.6 F 84 16 135/79 98 01/01/18 00:00 99 F 66 18 126/78 98 12/31/17 20:00 99.3 F H 96 H 18 139/82 98 12/31/17 16:15 88 12/31/17 16:00 97.6 F 83 16 127/68 99 12/31/17 12:15 101 H 12/31/17 12:00 96.9 F L 84 14 125/78 98 12/31/17 08:30 99 H 12/31/17 07:30 105 H 16 98 12/31/17 07:23 97.0 F 112 H 16 122/78 94 Intake and Output 12/31/17 01/01/18 01/01/18 21:59 05:59 13:59 Intake Total 200 / 200 400 / 400 Balance 200 / 200 400 / 400 Intake: Oral 200 / 200 400 / 400 Other: Meal Dinner Percent of Meal Consumed 100% Feeding Ability Independent Stool Size Moderate Stool Color Brown Stool Consistency Formed # Voids 1 2 # Bowel Movements 1 Weight 207 lb 1.6 oz Intake & Output: Intake & Output 12/31/17 01/01/18 01/01/18 21:59 05:59 13:59 Intake Total 200 / 200 400 / 400 Balance 200 / 200 400 / 400 Weight 207 lb 1.6 oz Intake: Oral 200 / 200 400 / 400 Other: Meal Dinner Percent of Meal Consumed 100% Feeding Ability Independent Stool Size Moderate Stool Color Brown Stool Consistency Formed # Voids 1 2 # Bowel Movements 1 Incision: Yes healing, No draining, No red, Yes swollen, No inflamed, Yes clean and dry Incision clean and dry: Yes Dressing: Yes clean, Yes dry, Yes intact Weight bearing status: as tolerated Neurological exam IM: Yes alert, Yes oriented X3, Yes motor sensory intact, Yes neurovascular intact Additional Comments: full AROM foot and ankle Extremities exam IM: No calf tenderness, Yes normal capillary refill, Yes Foot pink and warm, Yes neurovascular intact - Periperhal Pulses Peripheral pulses: 2+: dorsalis pedis (L), dorsalis pedis (R), posterior tibialis (L), posterior tibialis (R) - Labs CBC & BMP: 12/30/17 07:06 12/16/17 16:09 Labs: Orthopedic Labs 12/16/17 16:09 PT 13.3 INR 1.0 12/30/17 12/25/17 12/24/17 07:06 05:51 05:11 Hgb 9.1 L 9.9 L 10.4 L Hct 27.2 L 29.2 L 31.1 L 12/23/17 12/16/17 06:00 16:10 Hgb 12.1 L 15.7 Hct 36.6 L 46.8 Assessment and Plan (1) Osteoarthritis, knee POD #10 s/p right TKA: -ID recommends PO linezolid 600mg PO BID for 2 weeks. Continue wound care management and dressing changes. CT scan negative for deeper infection, gram stain negative. -WBC WNL -pain control -WBAT -d/c planning to SNF today -f/u with ID and ortho. [place]. PO in 5 days or so for staple removal Status: Acute
[2018-01-01] MEDS: METOPROLOL TARTRATE 50 MG TABLET PO SCH (08:53)
[2018-01-01] MEDS: DOCUSATE SODIUM 100 MG CAPSULE PO SCH (08:53)
[2018-01-01] MEDS: LINEZOLID 600 MG TABLET PO SCH (08:53)
[2018-01-01] MEDS: SILVER SULFADIAZINE CREAM.TOP 400GM TOPICAL SCH (10:00)
== END 2018-01-01 10:30 | DRG 470 ==
LOC: MEDSUR 12-22 12:23
PROVIDERS: ADMIT Orthopaedic Surgery Sports Medicine; ATTEND Orthopaedic Surgery Sports Medicine
CPT/HCPCS: 62322; 97161; 97165; 99231; A6197; A6248; C1776; J0131; J0171; J0690; J1580; J1885; J2001; J2060; J2175; J2250; J2405; J2795; J3370; J7030; J7040; J7050; J7060; J7120

== ENCOUNTER 2018-01-04 17:57 | Inpatient (IN) ==
--- NOTE | 2018-01-04 19:05 | Emergency Department Note ---
Lower Extremity Injury HPI - General Chief Complaint: Extremity Injury, Lower Stated Complaint: Right lower extremity swelling. Time Seen by Provider: 01/04/18 18:02 Source: patient, EMS Mode of arrival: EMS Limitations: no limitations - History of Present Illness HPI Narrative: 72-year-old male presents with right ankle redness, swelling, and pain. Onset yesterday. He did have a right knee replacement [address] Kaufman. States he had a terrible infection to the right knee. He was admitted and received IV vancomycin for 2 days and then they sent him home on Zyvox. States he just noticed yesterday the redness and warmth which was worse today. Also notes a small black scab-like area that he does not believe was there before. States he did have a small one on the right medial ankle that was from some sort of compression device but the one just above it that is small is new. He is at a rehab place for a few weeks post knee replacement however he has been unable to do rehab because of the infection. No fever or chills. No nausea, vomiting, or diarrhea. States he is very anxious because he is worried about this infection. He is here requesting to speak to Dr. Bose because last time with this infection Dr. Bose saved his life. It is unclear if he is followed up with Dr. Kaufman although he is supposed to next Thursday. He tells me that he has emailed Dr. Kaufman updates as well as pictures. - Related Data Home Medications Medication Instructions Recorded Confirmed L. Acidophilus/L. Rhamnosus 1 cap PO BID 12/16/17 01/04/18 [Probiotic 15 Billion Cell Cap] Metoprolol Tartrate [Lopressor] 50 mg PO BIDAC 12/16/17 01/04/18 Multivit,Ther Iron,Ca,FA & Min 1 tab PO BID 12/16/17 01/04/18 [Multivitamin W/Minerals] Rivaroxaban [Xarelto] 20 mg PO QPMCC 12/16/17 01/04/18 traMADol [Ultram] 50 - 100 mg PO Q4HP PRN 01/05/18 01/05/18 Previous Rx's Medication Instructions Recorded LORazepam [Ativan] 1 mg PO Q8HP PRN #6 tablet 12/24/17 Linezolid 600 mg PO BID #28 tab 01/01/18 Allergies Allergy/AdvReac Type Severity Reaction Status Date / Time hydrocodone AdvReac Mild Nausea Verified 12/16/17 15:26 dermabond AdvReac Severe Blister Uncoded 01/05/18 05:38 IV Contrast AdvReac Intermediate Rash Uncoded 01/05/18 00:08 Review of Systems All systems ED: reviewed and negative except as stated. Past Medical History - Past Medical History Psychiatric history: Reports: anxiety - Social History smoking status: Never smoker Alcohol use: Reports: None Drug use: Reports: none Physical Exam Limitations: no limitations General appearance: alert, in no apparent distress Head: atraumatic, normocephalic, normal inspection Eye: Present: normal appearance. Absent: conjunctival injection ENT: mucous membranes moist, normal external ear exam Chest: Present: symmetric chest wall rise Respiratory: Present: normal lung sounds bilaterally. Absent: respiratory distress, rales/crackles, accessory muscle use Cardiovascular: Present: regular rate, normal heart sounds Extremities: Present: normal capillary refill. Absent: normal inspection (He arrives with dressings to the right knee and ankle. The right knee is without redness. The dressing is in place. Edges removed and there is no redness or warmth. The right ankle medially has a 17 cm area in length by 9 cm in width area of redness. 1+ edema. Tender over the medial malleolus. There is also a 1.5 cm scab to the medial ankle that is dark and healing. Just proximal to that about 2 inches of the leg is a 1 cm dark scab. He states this is new. This whole ankle and medial surface of the lower leg where the redness is is tender to palpation. There is no drainage. He does have tenderness in the right ankle radiating up the right leg with flexion and extension of the right foot. Sensation intact) Neurological: Present: alert, oriented X3. Absent: motor sensory deficit Psychiatric: Present: anxious Skin: Present: warm, dry, normal color, erythema (Please see extremity assessment) Course Course Narrative: At 1845 Dr. Pastrana did come by the ER and saw this patient briefly. He would like us to get a CT with contrast of the right ankle and consider joint aspiration to rule out septic joint. Lab work is also pending. Vital Signs Temperature 99.9 F H 01/04/18 17:59 Pulse Rate 95 H 01/04/18 17:59 Respiratory Rate 18 01/04/18 17:59 Blood Pressure 159/99 01/04/18 17:59 Pulse Oximetry (%) 98 01/04/18 17:59 Temperature 98.9 F 01/05/18 07:36 Pulse Rate 95 H 01/05/18 07:36 Respiratory Rate 16 01/05/18 07:36 Blood Pressure 149/85 01/05/18 07:36 Pulse Oximetry (%) 99 01/05/18 07:36 Extremity Injury, Lower - Lab Data Lab results reviewed: Yes I reviewed the patient's lab results. Result diagrams: 01/05/18 04:45 01/05/18 04:45 Lab Results 01/04/18 01/04/18 01/04/18 Range/Units 18:45 18:49 19:17 WBC (4.5-11.0) K/mcL RBC (4.50-5.90) M/mcL Hgb (13.5-16.5) g/dL Hct (41.0-55.0) % POC Hct 25.0 L (41.0-55.0) % MCV (80.0-100.0) fL MCH (26.0-34.0) pg MCHC (31.0-36.0) g/dL RDW (11.5-14.5) % Plt Count (140-440) K/mcL MPV (7.4-10.4) fL Gran % (38.0-78.0) % Lymph % (Auto) (15.5-49.0) % Lucas % (Auto) (1.0-12.0) % Eos % (Auto) (0.0-7.0) % Baso % (Auto) (0.0-2.0) % Gran # (1.8-8.0) K/mcL Lymph # (Auto) (1.5-4.8) K/mcL Lucas # (Auto) (0.1-0.9) K/mcL Eos # (Auto) (0.0-0.7) K/mcL Baso # (Auto) (0.0-0.3) K/mcL D-Dimer 3.40 H (0.00-0.40) ug/ml VBG Lactic Acid (0.5-2.0) mmol/L POC Sodium 139 (133-145) mmol/L Sodium 137 (133-145) mmol/L POC Potassium 3.9 (3.3-5.1) mmol/L Potassium 3.9 (3.3-5.1) mmol/L POC Chloride 101 (96-108) mmol/L Chloride 100 (96-108) mmol/L Carbon Dioxide 25 (22-30) mmol/L POC Total CO2 25 (22-30) mmol/L Anion Gap 12.0 (8-16) POC BUN 20 (8-23) mg/dl BUN 21 (8-23) mg/dl Creatinine 1.0 (0.7-1.2) mg/dl POC Creatinine 1.1 (0.7-1.2) mg/dl GFR Calculation 76 Glucose 113 H (70-105) mg/dL POC Glucose 116 H (70-105) mg/dL Calcium 8.8 (8.6-10.4) mg/dl POC WB Ioniz Calcium 1.18 (1.16-1.32) mmol/L Total Bilirubin 0.8 (0.0-1.0) mg/dL AST 28 (0-37) U/l ALT 25 (0-40) U/l Alkaline Phosphatase 108 (39-117) U/L C-Reactive Protein 3.5 H (0.0-0.8) mg/dl Total Protein 6.8 (5.9-8.4) gm/dL Albumin 3.5 (3.2-5.2) gm/dL Globulin 3.3 (2.2-3.7) gm/dL Albumin/Globulin Ratio 1.1 (1.0-2.3) Procalcitonin < 0.05 (<0.10) ng/mL 01/04/18 01/04/18 Range/Units 19:19 19:19 WBC 9.3 (4.5-11.0) K/mcL RBC 3.31 L (4.50-5.90) M/mcL Hgb 10.5 L (13.5-16.5) g/dL Hct 31.6 L (41.0-55.0) % POC Hct (41.0-55.0) % MCV 95.3 (80.0-100.0) fL MCH 31.6 (26.0-34.0) pg MCHC 33.2 (31.0-36.0) g/dL RDW 14.7 H (11.5-14.5) % Plt Count 443 H (140-440) K/mcL MPV 8.5 (7.4-10.4) fL Gran % 72.8 (38.0-78.0) % Lymph % (Auto) 15.7 (15.5-49.0) % Lucas % (Auto) 9.5 (1.0-12.0) % Eos % (Auto) 1.7 (0.0-7.0) % Baso % (Auto) 0.3 (0.0-2.0) % Gran # 6.7 (1.8-8.0) K/mcL Lymph # (Auto) 1.5 (1.5-4.8) K/mcL Lucas # (Auto) 0.9 (0.1-0.9) K/mcL Eos # (Auto) 0.2 (0.0-0.7) K/mcL Baso # (Auto) 0 (0.0-0.3) K/mcL D-Dimer (0.00-0.40) ug/ml VBG Lactic Acid 2.4 H (0.5-2.0) mmol/L POC Sodium (133-145) mmol/L Sodium (133-145) mmol/L POC Potassium (3.3-5.1) mmol/L Potassium (3.3-5.1) mmol/L POC Chloride (96-108) mmol/L Chloride (96-108) mmol/L Carbon Dioxide (22-30) mmol/L POC Total CO2 (22-30) mmol/L Anion Gap (8-16) POC BUN (8-23) mg/dl BUN (8-23) mg/dl Creatinine (0.7-1.2) mg/dl POC Creatinine (0.7-1.2) mg/dl GFR Calculation Glucose (70-105) mg/dL POC Glucose (70-105) mg/dL Calcium (8.6-10.4) mg/dl POC WB Ioniz Calcium (1.16-1.32) mmol/L Total Bilirubin (0.0-1.0) mg/dL AST (0-37) U/l ALT (0-40) U/l Alkaline Phosphatase (39-117) U/L C-Reactive Protein (0.0-0.8) mg/dl Total Protein (5.9-8.4) gm/dL Albumin (3.2-5.2) gm/dL Globulin (2.2-3.7) gm/dL Albumin/Globulin Ratio (1.0-2.3) Procalcitonin (<0.10) ng/mL - Radiology Data Radiology results reviewed: Yes I reviewed the patient's radiology results. Disposition Pt seen by PLAY BACK OPERATOR/PA only: No Clinical Impression: Cellulitis Disposition: Xfer As Inpt ([facility]) Condition: Fair
[2018-01-04] MEDS ORDERED: LORazepam 1 MG TABLET PO ONE (19:10)
[2018-01-04 20:03] LABS: Basophils # (Auto) 0 K/mcL (0.0-0.3); Basophils % (Auto) 0.3 % (0.0-2.0); Eosinophils # (Auto) 0.2 K/mcL (0.0-0.7); Eosinophils % (Auto) 1.7 % (0.0-7.0); Granulocytes % (Auto) 72.8 % (38.0-78.0); Lymphocytes # (Auto) 1.5 K/mcL (1.5-4.8); Lymphocytes % (Auto) 15.7 % (15.5-49.0); Mean Cell Volume 95.3 fL (80.0-100.0); Mean Corpuscular HGB Conc 33.2 g/dL (31.0-36.0); Mean Corpuscular Hemoglobin 31.6 pg (26.0-34.0); Monocytes # (Auto) 0.9 K/mcL (0.1-0.9); Monocytes % (Auto) 9.5 % (1.0-12.0); Platelet Count 443 K/mcL (140-440); RBC 3.31 M/mcL (4.50-5.90); Red Cell Distribution Width 14.7 % (11.5-14.5)
[2018-01-04 20:21] LABS: ALT/SGPT 25 U/l (0-40); Albumin 3.5 gm/dL (3.2-5.2); Albumin/Globulin Ratio 1.1 (1.0-2.3); Alkaline Phosphatase 108 U/L (39-117); Blood Urea Nitrogen 21 mg/dl (8-23); C-Reactive Protein 3.5 mg/dl (0.0-0.8)
[2018-01-04] MEDS ORDERED: diphenhydrAMINE 50 MG/ML VIAL IV ONE (21:59)
--- NOTE | 2018-01-04 22:26 | Internal Med History&Physical ---
Medical - H&P: HPI Patient information: Note initiated : 01/04/18 at 10:21 pm Service Date, if different from initiated Date: [] Patient: Aaron Omalley a 72 y/o M admitted on for Right lower extremity swelling.. Chief Complaint: [] History of present illness: Mr. Omalley is a 72 year old M with h/o Afib on metoprolol and xareltro, was recently discharged from this facility after a extended stay after a elective right TKA. ' The patient post op course was complicated by infection of the skin superficial because by staff, the patient was treated initially with clindamycin and then later switched to IV vancomycin. The patient responded to vancomycin therapy. Patient was seen by infectious disease specialist during this time. Patient was discharged on oral linezolid. The patient notes that he has always had history of ankle pain, knee pain was worse and ankle pain. All of this started after he had an accident in winter. The patient notes that during his recent hospital stay he was able to ambulate on his leg but as soon as he put his leg on the ground it did hurt but the pain got better. The patient was discharged to skilled rehab facility. The patient notes that since yesterday there has been erythema or redness in the lower leg. He noticed this yesterday and it has gotten significantly worse today and he was therefore sent to the emergency room for further evaluation. The patient has a blister on his medial aspect of the ankle. Approximately 2 x 2 cm in size. The patient also reports he had significant pain in his ankle and was not able to ambulate. The patient notes that his knee is getting better. The patient admits to having some weakness and chills, pain in the right lower extremity and redness in the right lower extremity. He denies any chest pain shortness of breath cough nausea vomiting belly pain, he admits to having increased bruising. He denies any depression does have a history of anxiety. On presentation to the emergency room patient had a low-grade temperature 99.9, heart rate 103 blood pressure 159/99 saturating 100% on room air. Labs show a WBC count of 9.3 hemoglobin 10.5 platelets 443 d-dimer elevated at 3.30. Sodium 137 potassium 3.9 bicarbonate 25 creatinine 1.0 lactic acid is 2.4. Pro- calcitonin less than 0.05. A CT of the lower extremity was ordered a result of that is pending this was done at an outside facility. A duplex of the lower extremity to rule out DVT has also been ordered. After the Ct the patient developed rash on his face, likely reaction to the dye. no wheezing or shortness of breath. Given that the patient developed erythema in the lower extremity suggestive of cellulitis despite being on Zyvox the patient is being admitted to the hospital for further management. All systems: reviewed and no additional remarkable complaints except as stated ( as per hpi rest negative) Medical - H&P: PMH Medical history: Atrial fibrillation HTN Surgical history: Hernia surgery Pertinent family history: Father had hypertension Mother had hypertension diabetes and kidney disease Social history: Presently in a fdc. Denies any alcohol tobacco or recreational drug use Medical - H&P: Meds Home Medications Medication Instructions Recorded Confirmed Type Ascorbate Calcium/Bioflavonoid 2 tab PO HS 12/16/17 12/16/17 History [Kelsea-C 500 mg Tablet] Ascorbate Calcium/Bioflavonoid 4 tab PO DAILY 12/16/17 12/16/17 History [Kelsea-C 500 mg Tablet] Glucosam/Davis-Col.cplx/D3/C/Mn 1 cap PO BID 12/16/17 12/22/17 History [[id number]-Zcqfeqxipkm-O9 Cap] L. Acidophilus/L. Rhamnosus 1 cap PO BID 12/16/17 12/16/17 History [Probiotic 15 Billion Cell Cap] Metoprolol Tartrate [Lopressor] 50 mg PO BID 12/16/17 12/22/17 History Multivit,Ther Iron,Ca,FA & Min 1 tab PO BID 12/16/17 12/16/17 History [Multivitamin W/Minerals] Rivaroxaban [Xarelto] 20 mg PO QPMCC 12/16/17 12/22/17 History LORazepam [Ativan] 2 mg PO ONCE 12/22/17 12/22/17 History LORazepam [Ativan] 1 mg PO Q8HP PRN #6 tablet 12/24/17 Rx traMADol [Ultram] 50 mg PO Q4HP PRN #60 tab 12/24/17 Rx Linezolid 600 mg PO BID #28 tab 01/01/18 Rx Allergies Allergy/AdvReac Type Severity Reaction Status Date / Time hydrocodone AdvReac Mild Nausea Verified 12/16/17 15:26 Medical - H&P: Exam - Constitutional Vitals: Temp Pulse Resp BP Pulse Ox 99.9 F H 45 L 21 158/116 100 01/04/18 17:59 01/04/18 20:31 01/04/18 20:46 01/04/18 20:46 01/04/18 20:31 Exam: GENERAL: The patient is a well-developed, well-nourished in no apparent distress. Is alert and oriented x3. VITAL SIGNS: Reviewed and as noted elsewhere. HEENT: Head is normocephalic and atraumatic. Extraocular muscles are intact. Pupils are equal, round, and reactive to light. Nares appeared normal. Mouth appears any without lesions. Mucous membranes are moist. NECK: Normal to inspection, Supple, No lymphadenopathy or thyromegaly. LUNGS: Air entry equal on both sides, no wheezing, crackles or rhonchi noted. No accessory muscles of respiration HEART: Regular rate and rhythm irregular, S1 and S2 heard, no Gallop, S3 or Rub Noted, No Gross murmur heard. ABDOMEN: Soft, nontender, and nondistended. Positive bowel sounds. No hepatosplenomegaly was noted. EXTREMITIES: No cyanosis, Right lower extremity, knee in the bandage. Right lower extremity erythema extending from ankle to upper 2/3, warm to touch, lower extremiy edematous ++ . No edema on the left side. NEUROLOGIC: Cranial nerves II through XII are grossly intact. Motor and Sensory System Grossly Intact PSYCHIATRIC: Normal affect, Normal Mood. Appropriate Behavior. SKIN: No ulceration or wounds noted, No jaundice/ FAce has urticarial rash Medical - H&P: Reslt - Labs CBC & Chem 7: 01/04/18 19:19 01/04/18 18:45 Labs: Short CBC 01/04/18 Range/Units 19:19 WBC 9.3 (4.5-11.0) K/mcL Hgb 10.5 L (13.5-16.5) g/dL Hct 31.6 L (41.0-55.0) % Plt Count 443 H (140-440) K/mcL BMP 01/04/18 18:45 Sodium 137 Potassium 3.9 Chloride 100 Carbon Dioxide 25 BUN 21 Creatinine 1.0 Glucose 113 H Calcium 8.8 Liver Function 11/19/18 Range/Units 18:45 Total Bilirubin 0.8 (0.0-1.0) mg/dL AST 28 (0-37) U/l ALT 25 (0-40) U/l Alkaline Phosphatase 108 (39-117) U/L Albumin 3.5 (3.2-5.2) gm/dL Medical - H&P: A/P - Narrative A/P Narrative: A/P Right lower extremity Cellulitis lactic Acidosis Anemia, HTN Atrial fibrillation Elevated D dmier Recent knee replacement Superfical Skin infection/impetigo Plan Admit to med surg IV vancomycin and zosyn for now, IV fluids , this should also cover the patients superficial skin infection. cultures done will follow await CT extremity reading, get DUplex of the right lower extremity to r/o DVT, could be DVT given elevated d dmier, but pt is already on anticoagulation. Infectious disease consult. Resume home dose of xareltro and metoprolol for now Ativan prn for anxiety. DVT on xareltro Full code Regular diet.
[2018-01-05] MEDS ORDERED: diphenhydrAMINE 50 MG/ML VIAL IV PRN
[2018-01-05] MEDS ORDERED: NALOXONE HCL 0.4 MG/ML VIAL IV PRN
[2018-01-05] MEDS ORDERED: LACTATED RINGERS 1,000 ML IV ONE ×3
[2018-01-05] MEDS ORDERED: VANCOMYCIN PER PHARMACY IV ONE
[2018-01-05] MEDS ORDERED: IBUPROFEN 600 MG TABLET PO PRN
[2018-01-05] MEDS ORDERED: ACETAMINOPHEN 325 MG TABLET PO PRN
[2018-01-05] MEDS ORDERED: ONDANSETRON 4 MG/2 ML VIAL IV PRN
[2018-01-05] MEDS ORDERED: VANCOMYCIN 1,500 MG in 0.9 % SODIUM CHLORIDE 500 ML IV ONE
[2018-01-05] MEDS ORDERED: HYDROmorphone 2 MG/ML VIAL IV PRN
[2018-01-05] MEDS ORDERED: traMADol 50 MG TABLET PO ONE (00:52)
[2018-01-05] MEDS ORDERED: traMADol 50 MG TABLET PO PRN (01:12)
[2018-01-05] MEDS: PIPERACILLIN SODIUM/TAZOBACTAM 3.375 GM in DEXTROSE 5% IN WATER 50 ML IV SCH ×4 (01:32→18:06)
[2018-01-05 06:11] LABS: Basophils # (Auto) 0 K/mcL (0.0-0.3); Basophils % (Auto) 0.3 % (0.0-2.0); Eosinophils # (Auto) 0.2 K/mcL (0.0-0.7); Eosinophils % (Auto) 2.4 % (0.0-7.0); Granulocytes % (Auto) 73.4 % (38.0-78.0); Lymphocytes # (Auto) 1.1 K/mcL (1.5-4.8); Lymphocytes % (Auto) 15.8 % (15.5-49.0); Mean Corpuscular HGB Conc 32.5 g/dL (31.0-36.0); Mean Corpuscular Hemoglobin 31.2 pg (26.0-34.0); Monocytes # (Auto) 0.5 K/mcL (0.1-0.9); Monocytes % (Auto) 8.1 % (1.0-12.0); Platelet Count 369 K/mcL (140-440); RBC 3.05 M/mcL (4.50-5.90); Red Cell Distribution Width 14.9 % (11.5-14.5)
[2018-01-05] MEDS: 0.9 % SODIUM CHLORIDE 10 ML SYRINGE IV SCH ×3 (06:11→22:48)
[2018-01-05 06:16] LABS: C-Reactive Protein 2.8 mg/dl (0.0-0.8)
[2018-01-05 06:17] LABS: ALT/SGPT 19 U/l (0-40); Alkaline Phosphatase 93 U/L (39-117); Bilirubin,Direct 0.2 mg/dL (0.0-0.3); Blood Urea Nitrogen 18 mg/dl (8-23); Gamma Glutamyl Transpeptidase 43 U/L (8-61); Uric Acid 3.7 mg/dL (2.5-8.0)
[2018-01-05] MEDS ORDERED: VANCOMYCIN PER PHARMACY IV SCH (06:30)
--- NOTE | 2018-01-05 07:49 | XRay Report ---
HISTORY: Pain redness and decreased range of motion FINDINGS: There is a 1 mm old ununited chip fracture off the inferior border of the lateral malleolus. The ankle is otherwise normal. No recent fracture is present. The joint space is normal in width and alignment. There is no joint effusion, bone erosion, spur formation or periosteal elevation. IMPRESSION: No acute abnormality Interpreted and Authenticated by: Aaron Neal 01/05/18
[2018-01-05] MEDS ORDERED: LORazepam 1 MG TABLET PO PRN (07:59)
--- NOTE | 2018-01-05 08:07 | Ultrasound Report ---
History: Recent knee surgery now with leg infection, anticoagulated and on antibiotics FINDINGS: There is normal augmentation and compressibility of the deep veins from the common femoral vein to the distal thigh. There are bandages around the knee due to the recent surgery. Therefore the popliteal vein and trifurcation in the calf were not visualized. Posterior tibial vein was seen and has normal blood flow. The visualized portion of the greater saphenous vein is also normal. There is no evidence of an abscess no abnormal fluid collection is identified. IMPRESSION: Limited exam without evidence of deep venous thrombosis or abscess. Interpreted and Authenticated by: Aaron Neal 01/05/18
[2018-01-05] MEDS ORDERED: LINEZOLID 600 MG TABLET PO SCH (09:00)
[2018-01-05] MEDS: METOPROLOL TARTRATE 50 MG TABLET PO SCH ×2 (09:41→18:00)
[2018-01-05] MEDS: LACTOBACILLUS 1 CAPSULE PO SCH ×2 (09:41→22:05)
[2018-01-05] MEDS: MULTIVIT,THER IRON,CA,FA & MIN 1 TABLET PO SCH ×2 (09:41→22:05)
--- NOTE | 2018-01-05 11:46 | Internal Med Progress Note ---
Medical - PN: Subj Patient information: Note initiated : 01/05/18 at 11:43 am Service Date, if different from initiated Date: [] Patient: Aaron Omalley a 72 y/o M admitted on 01/04/18 for Right lower extremity swelling.. Chief Complaint: [] Interval history: Mr. Omalley is a 72 year old M with h/o Afib on metoprolol and xareltro, was recently discharged from this facility after a extended stay after a elective right TKA. ' The patient post op course was complicated by infection of the skin superficial because by staff, the patient was treated initially with clindamycin and then later switched to IV vancomycin. The patient responded to vancomycin therapy. Patient was seen by infectious disease specialist during this time. Patient was discharged on oral linezolid. The patient notes that he has always had history of ankle pain, knee pain was worse and ankle pain. All of this started after he had an accident in winter. The patient notes that during his recent hospital stay he was able to ambulate on his leg but as soon as he put his leg on the ground it did hurt but the pain got better. The patient was discharged to skilled rehab facility. The patient notes that since yesterday there has been erythema or redness in the lower leg. He noticed this yesterday and it has gotten significantly worse today and he was therefore sent to the emergency room for further evaluation. The patient has a blister on his medial aspect of the ankle. Approximately 2 x 2 cm in size. The patient also reports he had significant pain in his ankle and was not able to ambulate. The patient notes that his knee is getting better. The patient admits to having some weakness and chills, pain in the right lower extremity and redness in the right lower extremity. He denies any chest pain shortness of breath cough nausea vomiting belly pain, he admits to having increased bruising. He denies any depression does have a history of anxiety. On presentation to the emergency room patient had a low-grade temperature 99.9, heart rate 103 blood pressure 159/99 saturating 100% on room air. Labs show a WBC count of 9.3 hemoglobin 10.5 platelets 443 d-dimer elevated at 3.30. Sodium 137 potassium 3.9 bicarbonate 25 creatinine 1.0 lactic acid is 2.4. Pro- calcitonin less than 0.05. A CT of the lower extremity was ordered a result of that is pending this was done at an outside facility. A duplex of the lower extremity to rule out DVT has also been ordered. After the Ct the patient developed rash on his face, likely reaction to the dye. no wheezing or shortness of breath. Given that the patient developed erythema in the lower extremity suggestive of cellulitis despite being on Zyvox the patient is being admitted to the hospital for further management. 01/05 Patient seen and examined, no acute overnight events. CT of the lower extremity shows lower extremity cellulitis no joint effusion. DVT scan is negative. Patient clinically appears better, lactic acidosis has resolved. Edema better today. Await ID evaluation Pertinent ROS: Denies headache, dizziness Denies chest pain, palpitations Denies cough or shortness of breath Denies abdominal pain, nausea or vomiting. - Constitutional Vitals: Vital Signs Temp Pulse Resp BP Pulse Ox 98.9 F 95 H 16 149/85 99 01/05/18 07:36 01/05/18 07:36 01/05/18 07:36 01/05/18 07:36 01/05/18 07:36 Period Temp Pulse Resp BP Sys/Jon Pulse Ox Last 24 Hr 97.6 F-99.9 F 31-105 10-25 127-159/73-116 94-100 Intake and Output 01/04/18 01/05/18 01/05/18 21:59 05:59 13:59 Intake Total 3550 / 3550 50 / 50 Output Total 550 / 550 1125 / 1125 Balance 3000 / 3000 -1075 / -1075 Weight 210 lb 205 lb 8 oz Intake & Output: Intake & Output 01/04/18 01/05/18 01/05/18 21:59 05:59 13:59 Intake Total 3550 / 3550 50 / 50 Output Total 550 / 550 1125 / 1125 Balance 3000 / 3000 -1075 / -1075 Weight 210 lb 205 lb 8 oz Intake: IV 3550 / 3550 50 / 50 Lactated Ringers 1,000 ml @ 3000 / 3000 Wide Open IV BOLUS ONE Rx#: [id number] Zosyn 3.375 gm In Dextrose 5% 50 / 50 50 / 50 in Water 50 ml @ 100 mls/hr IV Q6H [facility] Rx#:[id number] Vancomycin 1,500 mg In Sodium 500 / 500 Chloride 0.9% 500 ml @ 333.3 mls/hr IV ONCE ONE Rx#: [id number] Output: Void Amount 550 / 550 1125 / 1125 Other: Meal Breakfast Percent of Meal Consumed 100% Feeding Ability Independent Urine Appearance Clear Urine Color Straw Urine Odor Normal # Voids 1 2 # Bowel Movements 1 Exam: Constitutional; Afebrile, cooperative, alert, not in distress. Respiratory system: Air Entry equal on both sides, No crackles or wheezing, no rhonchi. CVS- Rate rhythm regular, S1,S2 heard, no gallop, no rub. 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 Right lower extremity - Improved erythema, Medical - PN: Obj Da - Labs CBC & Chem 7: 01/05/18 04:45 01/05/18 04:45 Labs: Abnormal Lab Results 01/05/18 01/05/18 01/05/18 04:45 04:45 04:45 RBC 3.05 L Hgb 9.5 L Hct 29.3 L POC Hct RDW 14.9 H Plt Count Lymph # (Auto) 1.1 L ESR D-Dimer VBG Lactic Acid Glucose POC Glucose Calcium 8.4 L Lactate Dehydrogenase 377 H C-Reactive Protein 2.8 H Albumin 3.0 L 01/05/18 01/04/18 01/04/18 04:45 19:19 19:19 RBC 3.31 L Hgb 10.5 L Hct 31.6 L POC Hct RDW 14.7 H Plt Count 443 H Lymph # (Auto) ESR 39 H D-Dimer VBG Lactic Acid 2.4 H Glucose POC Glucose Calcium Lactate Dehydrogenase C-Reactive Protein Albumin 01/04/18 01/04/18 18:49 18:45 RBC Hgb Hct POC Hct 25.0 L RDW Plt Count Lymph # (Auto) ESR D-Dimer 3.40 H VBG Lactic Acid Glucose 113 H POC Glucose 116 H Calcium Lactate Dehydrogenase C-Reactive Protein 3.5 H Albumin Meds: Medications Acetaminophen (Tylenol) 650 mg PO Q6HP PRN PRN Reason: PAIN/FEVER > 101 Diphenhydramine HCl (Benadryl) 12.5 mg IV Q4HP PRN PRN Reason: Allergic Symptoms Hydromorphone HCl (Dilaudid) 0.5 mg IV Q2HP PRN PRN Reason: PAIN LEVEL > 6 Piperacillin Sod/Tazobactam (Sod 3.375 gm/ Dextrose) 50 mls @ 100 mls/hr IV Q6H [facility] Last Infusion: 01/05/18 06:40 Dose: Infused Vancomycin HCl 1,500 mg/ (Sodium Chloride) 500 mls @ 333.3 mls/hr IV Q12H [facility] Ibuprofen (Motrin) 600 mg PO QIDP PRN PRN Reason: PAIN/FEVER > 101 Iron Carb/Multivit/Yellow Medicine/Folic Acid (Multivitamin W/Minerals) 1 tab PO BID [facility] Last Admin: 01/05/18 09:41 Dose: 1 tab Lactobacillus Rhamnosus (Culturelle) 1 cap PO BID [facility] Last Admin: 01/05/18 09:41 Dose: 1 cap Lorazepam (Ativan) 1 mg PO Q8HP PRN PRN Reason: Pain Metoprolol Tartrate (Lopressor) 50 mg PO BIDAC [facility] Last Admin: 01/05/18 09:41 Dose: 50 mg Naloxone HCl (Narcan) 0.1 mg IV Q2MIN PRN PRN Reason: Opiate Reversal Ondansetron HCl (Zofran) 4 mg IV Q6HP PRN PRN Reason: Nausea And Vomiting Rivaroxaban (Xarelto) 20 mg PO QPMCC [facility] Senna (Senokot) 2 tab PO HS [facility] Sodium Chloride (Saline Flush) 10 ml IV Q8 [facility] Last Admin: 01/05/18 06:11 Dose: 10 ml Tramadol HCl (Ultram) 50 - 100 mg PO Q4HP PRN PRN Reason: Pain Vancomycin HCl (Vancomycin Per Pharmacy) 1 order IV UD [facility] Medical - PN: A/P - Time Spent With Patient Total time spent is greater than 50% in coordination of care (as documented) at patient's floor/unit and/or counseling patient: - Narrative A/P Narrative: A/P Right lower extremity Cellulitis lactic Acidosis Anemia, HTN Atrial fibrillation Elevated D dmier Recent knee replacement Superfical Skin infection/impetigo Plan continue IV vancomycin and zosyn for now, IV fluids , this should also cover the patients superficial skin infection. cultures done will follow, neg growth so far CT and duplex reviewed Infectious disease consult awaited. Resumed home dose of xareltro and metoprolol for now Ativan prn for anxiety. DVT on xareltro Full code Regular diet. Medical - PN: Qual - VTE Deep Vein Thrombosis/Pulmonary Embolism Present on Admission: No
[2018-01-05] MEDS ORDERED: VANCOMYCIN 1,500 MG in 0.9 % SODIUM CHLORIDE 500 ML IV SCH (12:00)
[2018-01-05] MEDS ORDERED: RIVAROXABAN 20 MG TABLET PO SCH (17:30)
--- NOTE | 2018-01-05 18:34 | General Surgery Consult Note ---
History of Present Illness Patient information: Note initiated : 01/05/18 at 6:30 pm Service Date, if different from initiated Date: [] Patient: Aaron Omalley 72 y/o M admitted on 01/04/18 for Right lower extremity swelling.. Chief Complaint: [] Consult date: 01/05/18 Requesting physician: Leobardo Pastrana (Wound Care [facility]) History of present illness: 01/05/2018 I saw this patient in room 131 on MedSurg floor at [facility]. Consultation requested by Dr. Pastrana, hospitalist physician. I saw this patient last week when he was treated for a skin and skin secondary infection following elective to right total knee replacement. After satisfactory treatment he was discharged to [facility] for continuity of care. He was admitted to the hospital emergently last evening for concern about sepsis and other complications like blood clots or embolism. I reviewed his investigation desires and reports from imaging studies. There is no evidence of deep venous thrombosis or pulmonary embolism at this time. Moreover, patient has benefited significantly from mild fluid resuscitation and empiric antibiotic treatment. Medications and Allergies Home Medications Medication Instructions Recorded Confirmed Type L. Acidophilus/L. Rhamnosus 1 cap PO BID 12/16/17 01/04/18 History [Probiotic 15 Billion Cell Cap] Metoprolol Tartrate [Lopressor] 50 mg PO BIDAC 12/16/17 01/04/18 History Multivit,Ther Iron,Ca,FA & Min 1 tab PO BID 12/16/17 01/04/18 History [Multivitamin W/Minerals] Rivaroxaban [Xarelto] 20 mg PO QPMCC 12/16/17 01/04/18 History LORazepam [Ativan] 1 mg PO Q8HP PRN #6 tablet 12/24/17 01/04/18 Rx Linezolid 600 mg PO BID #28 tab 01/01/18 01/04/18 Rx traMADol [Ultram] 50 - 100 mg PO Q4HP PRN 01/05/18 01/05/18 History Allergies Allergy/AdvReac Type Severity Reaction Status Date / Time hydrocodone AdvReac Mild Nausea Verified 12/16/17 15:26 dermabond AdvReac Severe Blister Uncoded 01/05/18 05:38 IV Contrast AdvReac Intermediate Rash Uncoded 11/20/18 00:08 Exam Temp Pulse Resp BP Pulse Ox 98.1 F 91 H 18 131/85 100 01/05/18 15:31 01/05/18 15:31 01/05/18 15:31 01/05/18 15:31 01/05/18 15:31 - General physical appearance well developed, well nourished, no distress, no pain - Eyes PERRL, normal ocular movement - ENT normal pinna, normal nares, normal mucosa, no hearing loss, no congestion - Head Head exam IM: Present: atraumatic, normal inspection, normocephalic - Neck no masses, trachea midline, no lymphadenopathy - Cardiovascular Cardiovascular exam IM: Present: normal rate and rhythm - Respiratory normal expansion, normal respiratory effort, clear to auscultation - Abdomen Abdomen: Present: soft, non tender, bowel sounds - Integumentary Present: other (Continuing resolution of the inflammatory changes around the surgical site right anterior knee. There were additional lesions around the ankle area which also are dry and epithelializing satisfactorily. Patient has had bruising of his right lower extremity especially upper thigh and lower leg and ankle areas. This too is improving.) - Neurologic Present: normal coordination, normal sensation, other (ambulating with walker) - Musculoskeletal Present: normal posture, other (ambulation with physical therapy and walker) - Psychiatric Present: oriented to time, oriented to person, oriented to place, speech is normal, memory intact Results - Labs 01/06/18 04:18 01/06/18 04:18 Abnormal lab results 01/04/18 01/04/18 01/04/18 Range/Units 18:45 18:49 19:19 RBC 3.31 L (4.50-5.90) M/mcL Hgb 10.5 L (13.5-16.5) g/dL Hct 31.6 L (41.0-55.0) % POC Hct 25.0 L (41.0-55.0) % RDW 14.7 H (11.5-14.5) % Plt Count 443 H (140-440) K/mcL Lymph # (Auto) (1.5-4.8) K/mcL ESR (0-15) mm/hr D-Dimer 3.40 H (0.00-0.40) ug/ml VBG Lactic Acid (0.5-2.0) mmol/L Glucose 113 H (70-105) mg/dL POC Glucose 116 H (70-105) mg/dL Calcium (8.6-10.4) mg/dl Lactate Dehydrogenase (94-250) U/L C-Reactive Protein 3.5 H (0.0-0.8) mg/dl Albumin (3.2-5.2) gm/dL 01/04/18 01/05/18 01/05/18 Range/Units 19: 04:45 04:45 RBC (4.50-5.90) M/mcL Hgb (13.5-16.5) g/dL Hct (41.0-55.0) % POC Hct (41.0-55.0) % RDW (11.5-14.5) % Plt Count (140-440) K/mcL Lymph # (Auto) (1.5-4.8) K/mcL ESR 39 H (0-15) mm/hr D-Dimer (0.00-0.40) ug/ml VBG Lactic Acid 2.4 H (0.5-2.0) mmol/L Glucose (70-105) mg/dL POC Glucose (70-105) mg/dL Calcium (8.6-10.4) mg/dl Lactate Dehydrogenase (94-250) U/L C-Reactive Protein 2.8 H (0.0-0.8) mg/dl Albumin (3.2-5.2) gm/dL 01/05/18 01/05/18 Range/Units 04:45 04:45 RBC 3.05 L (4.50-5.90) M/mcL Hgb 9.5 L (13.5-16.5) g/dL Hct 29.3 L (41.0-55.0) % POC Hct (41.0-55.0) % RDW 14.9 H (11.5-14.5) % Plt Count (140-440) K/mcL Lymph # (Auto) 1.1 L (1.5-4.8) K/mcL ESR (0-15) mm/hr D-Dimer (0.00-0.40) ug/ml VBG Lactic Acid (0.5-2.0) mmol/L Glucose (70-105) mg/dL POC Glucose (70-105) mg/dL Calcium 8.4 L (8.6-10.4) mg/dl Lactate Dehydrogenase 377 H (94-250) U/L C-Reactive Protein (0.0-0.8) mg/dl Albumin 3.0 L (3.2-5.2) gm/dL Diabetes panel 01/04/18 01/05/18 Range/Units 18:45 04:45 Sodium 137 137 (133-145) mmol/L Potassium 3.9 3.8 (3.3-5.1) mmol/L Chloride 100 103 (96-108) mmol/L Carbon Dioxide 25 24 (22-30) mmol/L BUN 21 18 (8-23) mg/dl Creatinine 1.0 1.0 (0.7-1.2) mg/dl Glucose 113 H 95 (70-105) mg/dL Calcium 8.8 8.4 L (8.6-10.4) mg/dl AST 28 24 (0-37) U/l ALT 25 19 (0-40) U/l Alkaline Phosphatase 108 93 (39-117) U/L Total Protein 6.8 5.9 (5.9-8.4) gm/dL Albumin 3.5 3.0 L (3.2-5.2) gm/dL Triglycerides 49 (<150) mg/dl Calcium panel 01/04/18 01/05/18 Range/Units 18:45 04:45 Calcium 8.8 8.4 L (8.6-10.4) mg/dl Phosphorus 3.0 (2.7-4.5) mg/dL Albumin 3.5 3.0 L (3.2-5.2) gm/dL Pituitary panel 01/04/18 01/05/18 Range/Units 18:45 04:45 Sodium 137 137 (133-145) mmol/L Potassium 3.9 3.8 (3.3-5.1) mmol/L Chloride 100 103 (96-108) mmol/L Carbon Dioxide 25 24 (22-30) mmol/L BUN 21 18 (8-23) mg/dl Creatinine 1.0 1.0 (0.7-1.2) mg/dl Glucose 113 H 95 (70-105) mg/dL Calcium 8.8 8.4 L (8.6-10.4) mg/dl Adrenal panel 01/04/18 01/05/18 Range/Units 18:45 04:45 Sodium 137 137 (133-145) mmol/L Potassium 3.9 3.8 (3.3-5.1) mmol/L Chloride 100 103 (96-108) mmol/L Carbon Dioxide 25 24 (22-30) mmol/L BUN 21 18 (8-23) mg/dl Creatinine 1.0 1.0 (0.7-1.2) mg/dl Glucose 113 H 95 (70-105) mg/dL Calcium 8.8 8.4 L (8.6-10.4) mg/dl Total Bilirubin 0.8 0.9 (0.0-1.0) mg/dL AST 28 24 (0-37) U/l ALT 25 19 (0-40) U/l Alkaline Phosphatase 108 93 (39-117) U/L Total Protein 6.8 5.9 (5.9-8.4) gm/dL Albumin 3.5 3.0 L (3.2-5.2) gm/dL All other labs normal. Assessment and Plan (1) Cellulitis and abscess of other specified site Assessment: Suspected recurrence of cellulitis following discharge from the hospital. No acute wound care related issues at this time. Patient clinically improving with fluid repletion and assessment of other etiologies. Plan: Continue ongoing wound care management. Will follow this patient was assisted in the hospital. Status: Suspected Priority: Low
[2018-01-05] MEDS ORDERED: oxyCODONE HCL 5 MG TABLET PO PRN ×2 (18:40)
[2018-01-05] MEDS ORDERED: SENNOSIDES 1 TABLET PO SCH (21:00)
--- NOTE | 2018-01-05 21:35 | Infectious Disease Consult ---
History of Present Illness Patient information: Note initiated : 01/05/18 at 9:23 pm Service Date, if different from initiated Date: [] Patient: Aaron Omalley 72 y/o M admitted on 01/04/18 for Right lower extremity swelling.. Chief Complaint: [] Consult date: 01/05/18 Requesting Physician: Leobardo Pastrana Reason for Consult: Rt LE swelling Chief complaint: my right leg turned red History of present illness: 72 year old man with PMHx of: - severe OA - Afib, on BB, Xarelto - recent admission for Rt sided TKA on 12/22 followed by appearance of blisters on POD3, along with temp of 100.8F, initially treated with Clindamycin switched to IV vanc x 2 days and then discharged on PO Linezolid to finish a 2 week course with stop date of 01/14 Pt was d/c to longterm after clinical improvement had been noted in the right leg. He developed redness and swelling below knee for a day prior to admission. Pt denied any trauma, fever, chills, n/v/diarrhea. In ED, he had a low grade fever of 99.9F, HR 103, BP 159/99. Labs showed WBC 9.3 , Hb 10.5, Plt 443, d-dimer elevated at 3.30, Cr 1, lactic acid 2.4, Pro- calcitonin < 0.05. DVT or abscess was r/o with US scan. Pt was started on IV Vanc and IV Zosyn. Per notes, pt had developed rash on his face after CT LE, likely reaction to the dye. At time of visit, pt reported feeling better. Denied any symptoms except for right leg swelling and pain. Review of Systems All systems PM: reviewed and no additional remarkable complaints except as stated Past History Past family history: not pertinent to current medical presentation Past social history: currently living in a [place] Medications and Allergies Home Medications Medication Instructions Recorded Confirmed Type L. Acidophilus/L. Rhamnosus 1 cap PO BID 12/16/17 01/04/18 History [Probiotic 15 Billion Cell Cap] Metoprolol Tartrate [Lopressor] 50 mg PO BIDAC 12/16/17 01/04/18 History Multivit,Ther Iron,Ca,FA & Min 1 tab PO BID 12/16/17 01/04/18 History [Multivitamin W/Minerals] Rivaroxaban [Xarelto] 20 mg PO QPMCC 12/16/17 01/04/18 History LORazepam [Ativan] 1 mg PO Q8HP PRN #6 tablet 12/24/17 01/04/18 Rx Linezolid 600 mg PO BID #28 tab 01/01/18 01/04/18 Rx traMADol [Ultram] 50 - 100 mg PO Q4HP PRN 01/05/18 01/05/18 History Allergies Allergy/AdvReac Type Severity Reaction Status Date / Time hydrocodone AdvReac Mild Nausea Verified 12/16/17 15:26 dermabond AdvReac Severe Blister Uncoded 01/05/18 05:38 IV Contrast AdvReac Intermediate Rash Uncoded 01/05/18 00:08 Physical Examination Vital signs: Temp Pulse Resp BP Pulse Ox 36.7 C 52 L 12 139/85 96 01/05/18 20:00 01/05/18 20:00 01/05/18 20:00 01/05/18 20:00 01/05/18 20:00 General appearance: no acute distress Eyes pulmonary: nonicteric Integumentary: erythema Extremities: edema, other (Rt Leg: swollen below kneeand above the ankle. Knee jt wrapped in dressing. Has a superficial ulcer over medial rt ankle. Minimal redness over the Rt leg only) normal mental status anxious Results - Laboratory Findings CBC and BMP: 01/05/18 04:45 01/05/18 04:45 PT/INR, D-dimer D-Dimer 3.40 ug/ml (0.00-0.40) H 01/04/18 18:49 Abnormal lab findings: Abnormal Labs 01/04/18 01/04/18 01/04/18 18:45 18:49 19:19 RBC 3.31 L Hgb 10.5 L Hct 31.6 L POC Hct 25.0 L RDW 14.7 H Plt Count 443 H Lymph # (Auto) ESR D-Dimer 3.40 H VBG Lactic Acid Glucose 113 H POC Glucose 116 H Calcium Lactate Dehydrogenase C-Reactive Protein 3.5 H Albumin 01/04/18 01/05/18 01/05/18 19:19 04:45 04:45 RBC Hgb Hct POC Hct RDW Plt Count Lymph # (Auto) ESR 39 H D-Dimer VBG Lactic Acid 2.4 H Glucose POC Glucose Calcium Lactate Dehydrogenase C-Reactive Protein 2.8 H Albumin 01/05/18 01/05/18 04:45 04:45 RBC 3.05 L Hgb 9.5 L Hct 29.3 L POC Hct RDW 14.9 H Plt Count Lymph # (Auto) 1.1 L ESR D-Dimer VBG Lactic Acid Glucose POC Glucose Calcium 8.4 L Lactate Dehydrogenase 377 H C-Reactive Protein Albumin 3.0 L Microbiology: Microbiology 01/04/18 18:50 Blood Blood Culture - Preliminary 01/04/18 19:40 Blood Blood Culture - Preliminary 01/05/18 04:30 Nose MRSA (PCR) - Final Assessment and Plan - Narrative A/P Narrative: A: 1. Rt LE non-purulent cellulitis 2. Staph aureus impetigo post op: currently on oral Linezolid 600 mg bid, day 5 14 3. Recent Rt TKA Recommendations: - In absence of purulent cellulitis and lack of systemic signs/symptoms; will treat with PO antibiotics. Since it happened while on oral Linezolid; will consider adding PO Cipro for gram-negative coverage (which has excellent bioavailability in deeper tissues including bone) 500 mg bid to be continued for 7 days with stop date of 01/12/18 - Stop IV Vanc and IV Zosyn - outpt f/u with Ortho and wound care Bk Bose MD Infectious diseases
[2018-01-05] MEDS: LINEZOLID 600 MG TABLET PO SCH (22:05)
[2018-01-05] MEDS: CIPROFLOXACIN 500 MG TABLET PO SCH (22:05)
[2018-01-06 05:36] LABS: Basophils # (Auto) 0 K/mcL (0.0-0.3); Basophils % (Auto) 0.2 % (0.0-2.0); Eosinophils # (Auto) 0.3 K/mcL (0.0-0.7); Eosinophils % (Auto) 4.3 % (0.0-7.0); Granulocytes % (Auto) 69.7 % (38.0-78.0); Lymphocytes % (Auto) 16.3 % (15.5-49.0); Mean Cell Volume 95.8 fL (80.0-100.0); Mean Corpuscular HGB Conc 33.7 g/dL (31.0-36.0); Mean Corpuscular Hemoglobin 32.2 pg (26.0-34.0); Monocytes # (Auto) 0.6 K/mcL (0.1-0.9); Monocytes % (Auto) 9.5 % (1.0-12.0); Platelet Count 392 K/mcL (140-440); RBC 3.04 M/mcL (4.50-5.90); Red Cell Distribution Width 14.9 % (11.5-14.5)
[2018-01-06 06:08] LABS: ALT/SGPT 20 U/l (0-40); Albumin 3.2 gm/dL (3.2-5.2); Albumin/Globulin Ratio 1.1 (1.0-2.3); Alkaline Phosphatase 93 U/L (39-117); Bilirubin,Direct 0.2 mg/dL (0.0-0.3); Blood Urea Nitrogen 17 mg/dl (8-23); Gamma Glutamyl Transpeptidase 41 U/L (8-61); Uric Acid 3.9 mg/dL (2.5-8.0)
[2018-01-06] MEDS: 0.9 % SODIUM CHLORIDE 10 ML SYRINGE IV SCH (06:51)
[2018-01-06] MEDS: METOPROLOL TARTRATE 50 MG TABLET PO SCH (07:49)
--- NOTE | 2018-01-06 08:31 | General Surgery Progress Note ---
Subjective Narrative: Note initiated : 01/06/18 at 8:29 am Service Date, if different from initiated Date: [] Patient: Aaron Omalley 72 y/o M admitted on 01/04/18 for Right lower extremity swelling.. Chief Complaint: [] Patient seen on rounds. Progress reviewed with Dr. Pastrana, hospitalist physician. Patient does not report any new symptom. He had a comfortable night. Wound dressings changed as per instructions and orders. Objective Temp Pulse Resp BP Pulse Ox 98.5 F 91 H 20 147/96 97 01/06/18 07:35 01/06/18 04:00 01/06/18 07:35 01/06/18 07:35 01/06/18 07:35 - Additional Data Intake & Output - Last 24 hours: Intake & Output 01/04/18 01/05/18 01/06/18 01/07/18 05:59 05:59 05:59 05:59 Intake Total 3550 / 3550 1280 / 1280 Output Total 550 / 550 2925 / 2925 Balance 3000 / 3000 -1645 / -1645 Weight 205 lb 8 oz 207 lb 01/06/18 08:30 AVSS. No changes in her physical examination. Local examination: No evidence of acute inflammation or cellulitis. Resolving postsurgical changes. Patient ambulating with assistance. Back to his usual ADLs. Keen to be discharged from the hospital and continue his rehabilitation as outpatient. - Labs 01/06/18 04:18 01/06/18 04:18 Diabetes panel 01/06/18 Range/Units 04:18 Sodium 140 (133-145) mmol/L Potassium 3.9 (3.3-5.1) mmol/L Chloride 104 (96-108) mmol/L Carbon Dioxide 26 (22-30) mmol/L BUN 17 (8-23) mg/dl Creatinine 1.0 (0.7-1.2) mg/dl Glucose 95 (70-105) mg/dL Calcium 8.9 (8.6-10.4) mg/dl AST 25 (0-37) U/l ALT 20 (0-40) U/l Alkaline Phosphatase 93 (39-117) U/L Total Protein 6.2 (5.9-8.4) gm/dL Albumin 3.2 (3.2-5.2) gm/dL Triglycerides 47 (<150) mg/dl Calcium panel 01/06/18 Range/Units 04:18 Calcium 8.9 (8.6-10.4) mg/dl Phosphorus 3.8 (2.7-4.5) mg/dL Albumin 3.2 (3.2-5.2) gm/dL Pituitary panel 01/06/18 Range/Units 04:18 Sodium 140 (133-145) mmol/L Potassium 3.9 (3.3-5.1) mmol/L Chloride 104 (96-108) mmol/L Carbon Dioxide 26 (22-30) mmol/L BUN 17 (8-23) mg/dl Creatinine 1.0 (0.7-1.2) mg/dl Glucose 95 (70-105) mg/dL Calcium 8.9 (8.6-10.4) mg/dl Adrenal panel 01/06/18 Range/Units 04:18 Sodium 140 (133-145) mmol/L Potassium 3.9 (3.3-5.1) mmol/L Chloride 104 (96-108) mmol/L Carbon Dioxide 26 (22-30) mmol/L BUN 17 (8-23) mg/dl Creatinine 1.0 (0.7-1.2) mg/dl Glucose 95 (70-105) mg/dL Calcium 8.9 (8.6-10.4) mg/dl Total Bilirubin 0.9 (0.0-1.0) mg/dL AST 25 (0-37) U/l ALT 20 (0-40) U/l Alkaline Phosphatase 93 (39-117) U/L Total Protein 6.2 (5.9-8.4) gm/dL Albumin 3.2 (3.2-5.2) gm/dL Assessment and Plan (1) Cellulitis and abscess of other specified site Status: Suspected Current Visit: No - Time Spent With Patient Total time spent is greater than 50% in coordination of care (as documented) at patient's floor/unit and/or counseling patient: Assessment: Satisfactory progress from the wound care point of view. 2 continue with current management. Plan: Okay for discharge from the wound care point of view. Continue ongoing care. If discharged, follow-up of the wound care clinic in 1 week. 15 - 24 minutes
[2018-01-06] MEDS: LACTOBACILLUS 1 CAPSULE PO SCH (08:58)
[2018-01-06] MEDS: LINEZOLID 600 MG TABLET PO SCH (08:59)
[2018-01-06] MEDS: MULTIVIT,THER IRON,CA,FA & MIN 1 TABLET PO SCH (08:59)
[2018-01-06] MEDS: CIPROFLOXACIN 500 MG TABLET PO SCH (08:59)
[2018-01-06] MEDS ORDERED: SILVER SULFADIAZINE CREAM.TOP 400GM TOPICAL SCH (09:00)
--- NOTE | 2018-01-06 09:31 | Discharge Summary ---
Medical - DS: Prov Patient information: Note initiated : 01/06/18 at 9:29 am Service Date, if different from initiated Date: [] Patient: Aaron Omalley 72 y/o M admitted on 01/04/18 for Right lower extremity swelling.. Chief Complaint: [] Date of admission: 01/04/18 23:18 Discharge date: 01/06/18 Primary care physician: Eligio Valencia Admitting clinician: Leobardo Pastrana Consults: 01/04/18 Consult to Physician [CONS] Stat Comment: Consulting Provider: Leobardo Pastrana Reason For Exam: Physician to Consult 01/05/18 00:00 Consult to Physician [CONS] Routine Comment: Consulting Provider: Bk Bose Reason For Exam: Physician to Consult 01/05/18 12:02 Consult to Physician [CONS] Routine Comment: Consulting Provider: King Shepard Reason For Exam: Physician to Consult Discharging clinician: Leobardo Pastrana Medical - DS: Meds - Discharge Medications Prescriptions: Ciprofloxacin [Cipro] 500 mg PO BID #14 tab LORazepam [Ativan] 1 mg PO Q8HP PRN #15 tab PRN Reason: Pain traMADol [Ultram] 50 - 100 mg PO Q4HP PRN #40 tab PRN Reason: Pain Active and Home Medications: Home Medications L. Acidophilus/L. Rhamnosus [Probiotic 15 Billion Cell Cap] 1 cap PO BID [History Confirmed 01/04/18 Last Taken 01/04/18 08:00] Metoprolol Tartrate [Lopressor] 50 mg PO BIDAC 12/16/17 [History Confirmed 01/04 Last Taken 01/04/18 20:00] Multivit,Ther Iron,Ca,FA & Min [Multivitamin W/Minerals] 1 tab PO BID 12/16/17 [ History Confirmed 01/04/18 Last Taken 01/04/18 08:00] Rivaroxaban [Xarelto] 20 mg PO QPMCC 12/16/17 [History Confirmed 01/04/18 Last Taken 01/04/18 20:00] LORazepam [Ativan] 1 mg PO Q8HP PRN #6 tablet 12/24/17 [Rx Confirmed 01/04/18 Last Taken 01/04/18 20:17] Linezolid 600 mg PO BID #28 tab 11/16/18 [Rx Confirmed 01/04/18 Last Taken 01/04 08:00] traMADol [Ultram] 50 - 100 mg PO Q4HP PRN 01/05/18 [History Confirmed 01/05/18 Last Taken Unknown] Medical - DS: Hosp Hospital course: MMr. Omalley is a 72 year old M with h/o Afib on metoprolol and xareltro, was recently discharged from this facility after a extended stay after a elective right knee surgery. The patient post op course was complicated by infection of the skin superficial because by staff, the patient was treated initially with clindamycin and then later switched to IV vancomycin. The patient responded to vancomycin therapy. Patient was seen by infectious disease specialist during this time. Patient was discharged on oral linezolid. The patient notes that he has always had history of ankle pain, knee pain was worse and ankle pain. All of this started after he had an accident in winter. The patient notes that during his recent hospital stay he was able to ambulate on his leg but as soon as he put his leg on the ground it did hurt but the pain got better. The patient was discharged to skilled rehab facility. The patient notes that since yesterday there has been erythema or redness in the lower leg. He noticed this yesterday and it has gotten significantly worse today and he was therefore sent to the emergency room for further evaluation. The patient has a blister on his medial aspect of the ankle. Approximately 2 x 2 cm in size. The patient also reports he had significant pain in his ankle and was not able to ambulate. The patient notes that his knee is getting better. The patient admits to having some weakness and chills, pain in the right lower extremity and redness in the right lower extremity. He denies any chest pain shortness of breath cough nausea vomiting belly pain, he admits to having increased bruising. He denies any depression does have a history of anxiety. On presentation to the emergency room patient had a low-grade temperature 99.9, heart rate 103 blood pressure 159/99 saturating 100% on room air. Labs show a WBC count of 9.3 hemoglobin 10.5 platelets 443 d-dimer elevated at 3.30. Sodium 137 potassium 3.9 bicarbonate 25 creatinine 1.0 lactic acid is 2.4. Pro- calcitonin less than 0.05. A CT of the lower extremity shows swelling and edema , no abscess or arthritis. A duplex of the lower extremity to rule out DVT is negative. Right lower extremity Cellulitis-patient was initially treated with IV vancomycin and Zosyn. Patient was seen by infectious disease specialist. Given the patient has no systemic signs of infection patient will be treated with oral antibiotics. Ciprfloxacin. Patient continued to do well. Patient will continue to follow-up with orthopedics and wound care as an outpatient. Patient will take oral ciprofloxacin and oral Zyvox. Last day of antibiotic is 01/12/2018 The rest of the stay in the hospital was unremarkable. No changes in the chronic home medication has been done Discharge diagnosis: Cellulitis - Time Spent with Patient Total time spent providing and/or coordinating discharge services: Less than 30 minutes Medical - DS: Exam - Constitutional Vitals: Vital Signs Temp Pulse Resp BP Pulse Ox 01/06/18 07:35 98.5 F 20 147/96 97 01/06/18 04:00 97.4 F 91 H 12 159/90 98 01/06/18 00:00 98.0 F 50 L 12 132/80 96 01/05/18 20:00 98.1 F 52 L 12 139/85 96 01/05/18 15:31 98.1 F 91 H 18 131/85 100 01/05/18 11:52 97.8 F 115 H 16 127/87 98 Intake and Output 01/05/18 01/06/18 01/06/18 21:59 05:59 13:59 Intake Total 1000 / 1000 180 / 180 400 / 400 Output Total 650 / 650 1150 / 1150 400 / 400 Balance 350 / 350 -970 / -970 0 / 0 Intake: IV 500 / 500 Vancomycin 1,500 mg In Sodium 500 / 500 Chloride 0.9% 500 ml @ 333.3 mls/hr IV Q12H [facility] Rx#: [id number] Oral 500 / 500 180 / 180 400 / 400 Output: Void Amount 650 / 650 1150 / 1150 400 / 400 Other: Meal Dinner Breakfast Percent of Meal Consumed 100% 100% Feeding Ability Independent Independent Urine Appearance Clear Urine Color Straw Urine Odor Normal # Bowel Movements 1 Weight 207 lb Additional comments: Constitutional; Afebrile, cooperative, alert, not in distress. Respiratory system: Air Entry equal on both sides, No crackles or wheezing, no rhonchi. PATIENT PORTAL CONCIERGE- AOOx3, moving all extremities, no gross focal deficit noted. Right lower extremity-erythema much improved edema much improved Medical - DS: Data Labs on day of discharge: Labs from last 24 hours 01/06/18 01/06/18 04:18 04:18 WBC 6.2 RBC 3.04 L Hgb 9.8 L Hct 29.1 L MCV 95.8 MCH 32.2 MCHC 33.7 RDW 14.9 H Plt Count 392 MPV 8.1 Gran % 69.7 Lymph % (Auto) 16.3 [place] % (Auto) 9.5 Eos % (Auto) 4.3 Baso % (Auto) 0.2 Gran # 4.3 Lymph # (Auto) 1.0 L [place] # (Auto) 0.6 Eos # (Auto) 0.3 Baso # (Auto) 0 Sodium 140 Potassium 3.9 Chloride 104 Carbon Dioxide 26 Anion Gap 10.0 BUN 17 Creatinine 1.0 GFR Calculation 76 Glucose 95 Uric Acid 3.9 Calcium 8.9 Phosphorus 3.8 Magnesium 2.2 Total Bilirubin 0.9 Direct Bilirubin 0.2 GGT 41 AST 25 ALT 20 Alkaline Phosphatase 93 Lactate Dehydrogenase 407 H Total Protein 6.2 Albumin 3.2 Globulin 3.0 Albumin/Globulin Ratio 1.1 Triglycerides 47 Preliminary micro results at discharge 01/04/18 18:50 Blood Culture - Preliminary Blood 01/04/18 19:40 Blood Culture - Preliminary Blood Medical - DS: A/P - Patient/Caregiver Discharge Instructions Activity: as per physical therapy, increase activity as tolerated Diet: Regular Diet Additional Instructions: Follow up with Dr. Shepard in 1 week. Wound care instructions as per Dr Shepard Pt to continue on linezolid till 01/12/2018 Pt has been started on ciprofloxacin 500mg bid, last dose 01/12/2018 Follow up with ortho as per previous schedule. Other Amb Orders: Wound Care Instructions Location: None Selected - Follow up Plan Follow up with: Eligio Valencia MD [Primary Care Provider] - King Shepard MD [Physician] - Zhen Kaufman MD [Physician] - Disposition: Xfer SNF Prognosis: Fair Rehab Potential: Fair I certify that the patient requires SNF services: Yes Overall status at discharge: patient is progressing back to baseline Medical - DS: Qual - VTE Deep Vein Thrombosis/Pulmonary Embolism Present on Admission: No
--- NOTE | 2018-01-06 11:04 | Infectious Disease Prog Note ---
Subjective Patient information: Note initiated : 01/06/18 at 11:02 am Service Date, if different from initiated Date: [] Patient: Aaron Omalley 72 y/o M admitted on 01/04/18 for Right lower extremity swelling.. Chief Complaint: [] Interval history: Patient is doing well. Denies any fever, chills, nausea, vomiting, diarrhea. He was able to walk with help of physical therapy without any significant pain. He mentions that his swelling in the right leg is much improved. Objective Objective Narrative: Alert oriented x3 Right leg is slightly swollen compared to the left side but overall compared to yesterday looks improved Minimal redness, no warmth, no open drainage or lesions seen Right knee: Is wrapped in dressing no soakage. Also has a small dressing over the medial ankle wound - Vital Signs Vital signs: Vital Signs Temp Pulse Resp BP Pulse Ox 01/06/18 07:35 36.9 C 20 147/96 97 01/06/18 04:00 36.3 C 91 H 12 159/90 98 01/06/18 00:00 36.7 C 50 L 12 132/80 96 01/05/18 20:00 36.7 C 52 L 12 139/85 96 01/05/18 15:31 36.7 C 91 H 18 131/85 100 01/05/18 11:52 36.6 C 115 H 16 127/87 98 Intake and Output 01/05/18 01/06/18 01/06/18 21:59 05:59 13:59 Intake Total 1000 / 1000 180 / 180 400 / 400 Output Total 650 / 650 1150 / 1150 400 / 400 Balance 350 / 350 -970 / -970 0 / 0 Intake: IV 500 / 500 Vancomycin 1,500 mg In Sodium 500 / 500 Chloride 0.9% 500 ml @ 333.3 mls/hr IV Q12H [facility] Rx#: [id number] Oral 500 / 500 180 / 180 400 / 400 Output: Void Amount 650 / 650 1150 / 1150 400 / 400 Other: Meal Dinner Breakfast Percent of Meal Consumed 100% 100% Feeding Ability Independent Independent Urine Appearance Clear Urine Color Straw Urine Odor Normal # Bowel Movements 1 Weight 93.894 kg Intake & Output: Intake & Output 01/05/18 01/06/18 01/06/18 21:59 05:59 13:59 Intake Total 1000 / 1000 180 / 180 400 / 400 Output Total 650 / 650 1150 / 1150 400 / 400 Balance 350 / 350 -970 / -970 0 / 0 Weight 93.894 kg Intake: IV 500 / 500 Vancomycin 1,500 mg In Sodium 500 / 500 Chloride 0.9% 500 ml @ 333.3 mls/hr IV Q12H [facility] Rx#: [id number] Oral 500 / 500 180 / 180 400 / 400 Output: Void Amount 650 / 650 1150 / 1150 400 / 400 Other: Meal Dinner Breakfast Percent of Meal Consumed 100% 100% Feeding Ability Independent Independent Urine Appearance Clear Urine Color Straw Urine Odor Normal # Bowel Movements 1 - Lab 01/06/18 04:18 01/06/18 04:18 Most recent lab results Calcium 8.9 mg/dl (8.6-10.4) 01/06/18 04:18 Phosphorus 3.8 mg/dL (2.7-4.5) 01/06/18 04:18 Magnesium 2.2 mg/dL (1.6-2.5) 01/06/18 04:18 Microbiology 01/04/18 18:50 Blood Blood Culture - Preliminary 01/04/18 19:40 Blood Blood Culture - Preliminary 01/05/18 04:30 Nose MRSA (PCR) - Final Medications Active Medications: Acetaminophen (Tylenol) 650 mg PO Q6HP PRN PRN Reason: PAIN/FEVER > 101 Ciprofloxacin (Cipro) 500 mg PO BID [facility] Last Admin: 01/06/18 08:59 Dose: 500 mg Admin: 01/05/18 22:05 Dose: 500 mg Diphenhydramine HCl (Benadryl) 12.5 mg IV Q4HP PRN PRN Reason: Allergic Symptoms Hydromorphone HCl (Dilaudid) 0.5 mg IV Q2HP PRN PRN Reason: PAIN LEVEL > 6 Ibuprofen (Motrin) 600 mg PO QIDP PRN PRN Reason: PAIN/FEVER > 101 Iron Carb/Multivit/Sludge Control Attendant/Folic Acid (Multivitamin W/Minerals) 1 tab PO BID [facility] Last Admin: 01/06/18 08:59 Dose: 1 tab Admin: 01/05/18 22:05 Dose: 1 tab Admin: 01/05/18 09:41 Dose: 1 tab Lactobacillus Rhamnosus (Culturelle) 1 cap PO BID [facility] Last Admin: 01/06/18 08:58 Dose: 1 cap Admin: 01/05/18 22:05 Dose: 1 cap Admin: 01/05/18 09:41 Dose: 1 cap Linezolid (Zyvox) 600 mg PO Q12 [facility] Last Admin: 01/06/18 08:59 Dose: 600 mg Admin: 01/05/18 22:05 Dose: 600 mg Lorazepam (Ativan) 1 mg PO Q8HP PRN PRN Reason: Pain Metoprolol Tartrate (Lopressor) 50 mg PO BIDAC [facility] Last Admin: 01/06/18 07:49 Dose: 50 mg Admin: 01/05/18 18:00 Dose: 50 mg Admin: 01/05/18 09:41 Dose: 50 mg Naloxone HCl (Narcan) 0.1 mg IV Q2MIN PRN PRN Reason: Opiate Reversal Ondansetron HCl (Zofran) 4 mg IV Q6HP PRN PRN Reason: Nausea And Vomiting Oxycodone HCl (Roxicodone) 5 mg PO Q4HP PRN PRN Reason: pain uncontrolled by tylenol. Rivaroxaban (Xarelto) 20 mg PO QPMCC [facility] Last Admin: 01/05/18 18:00 Dose: 20 mg Senna (Senokot) 2 tab PO HS [facility] Last Admin: 01/05/18 22:44 Dose: Not Given Non-Admin Reason: Patient Refused Silver Sulfadiazine (Silvadene) 1 dose TOPICAL DAILY [facility] Last Admin: 01/06/18 08:59 Dose: 1 dose Sodium Chloride (Saline Flush) 10 ml IV Q8 [facility] Last Admin: 01/06/18 06:51 Dose: Not Given Non-Admin Reason: Patient Asleep Admin: 01/05/18 22:48 Dose: 10 ml Admin: 01/05/18 14:00 Dose: Not Given Non-Admin Reason: Bag Still Infusing Admin: 01/05/18 06:11 Dose: 10 ml Assessment and Plan - Narrative A/P Narrative: A: 1. Rt LE non-purulent cellulitis : Resolving 2. Staph aureus impetigo post op: currently on oral Linezolid 600 mg bid, day 5/ 14 3. Recent Rt TKA Recommendations: -Continue ciprofloxacin 500 mg bid with stop date of 01/12/18. Patient counseled about interactions with dairy and calcium supplements, and how to space them. Patient voiced understanding -Continue oral Linezolid 600 mg twice daily with stop date of 01/14/18 - outpt f/u with Ortho and wound care No ID follow-up needed unless patient has residual symptoms suggestive of infection after completion of antibiotic treatment Bk Bose MD Infectious diseases
== END 2018-01-06 11:05 | DRG 603 ==
LOC: ED 17:57 → MEDSUR 23:18
PROVIDERS: ADMIT Internal Medicine; ATTEND Internal Medicine
CPT/HCPCS: 80047; 84145; 85014; 97161; 97166; 99223; 99231; 99238; J1200; J2543; J3370; J7040; J7060; J7120; Q9967